=== PATIENT | female | born 1955 | race Caucasian/White ===

== ENCOUNTER → 2016-11-07 | Outpatient (CLI) | payer BC ==
[~2016-11-07] MED LIST: APIX1TAB3 PO; ASPEC81 PO; ASPI81TA28 PO; ATOR10TA88 PO; BUME1TAB PO; BUME2TAB3 PO; CALC-323 PO; CALC500C70 PO; CETI10TA84 PO; CINN500T PO; CLL250 PO; CRAN1CAP2 PO; CRAN1TAB9 PO; FELO5TAB PO; FURO80TA63 PO; GABA-112 PO; GLC/500 PO; METO50TA16 PO; MGN PO; MULT-790 PO; NXM/40 PO; OPTOPS OP; POTA99TA PO; TACR1CAP PO
[2016-11-07 18:45] LABS: BLOOD UREA NITROGEN 16 mg/dl (7-18); GLUCOSE 112 mg/dl (70-99)
[2016-11-07 18:46] LABS: BUN/CREATININE RATIO 16.3 (10-20); CALCIUM 10.8 mg/dl (8.5-10.1); CARBON DIOXIDE 28 mmol/L (21-32); CHLORIDE 102 mmol/L (98-107); MAGNESIUM 1.7 mg/dl (1.8-2.4); POTASSIUM 3.9 mmol/L (3.5-5.1); SODIUM 142 mmol/L (136-145)
== END | disposition home or self-care (01) ==
LOC: C.LAB1850 15:38
PROVIDERS: ATTEND Internal Medicine
DX: I48.91 Unspecified atrial fibrillation (principal)

== ENCOUNTER → 2017-01-24 | Outpatient (CLI) | payer BC, OTHER ==
[~2017-01-24] MED LIST changes: +ATOR10TA82 PO; -ATOR10TA88 PO
[2017-01-24 13:32] LABS: BLOOD UREA NITROGEN 11 mg/dl (7-18); BUN/CREATININE RATIO 11.9 (10-20); CALCIUM 9.5 mg/dl (8.5-10.1); CARBON DIOXIDE 28 mmol/L (21-32); CHLORIDE 104 mmol/L (98-107); CREATININE 0.89 mg/dl (0.60-1.20); GLUCOSE 170 mg/dl (70-99); MAGNESIUM 1.8 mg/dl (1.8-2.4); PHOSPHORUS 2.2 mg/dl (2.5-4.9); POTASSIUM 3.2 mmol/L (3.5-5.1); SODIUM 142 mmol/L (136-145)
[2017-01-24 13:33] LABS: HEMATOCRIT 38.4 % (37-47); MEAN CELL VOLUME 88.9 fL (80-100); MEAN CORPUSCULAR HEMOGLOBIN 29.4 pg (25-34); MEAN CORPUSCULAR HGB CONC 33.1 g/dl (32-36); MEAN PLATELET VOLUME 10.6 fL (7.4-10.4); PLATELET COUNT 189 K/uL (130-400); RED BLOOD COUNT 4.32 M/uL (4.2-5.4); WHITE BLOOD COUNT 4.56 K/uL (4.8-10.8)
[2017-01-28 08:34] LABS: FK506 TACROLIMUS HIGHLY SENS 4.9 MCG/L (5-20)
== END | disposition home or self-care (01) ==
LOC: C.LABMFLN 13:28
PROVIDERS: ATTEND Family Medicine
DX: M85.80 Other specified disorders of bone density and structure, unspecified site (principal)

== ENCOUNTER → 2017-03-31 | Day surgery (SDC) | payer BC ==
[~2017-03-31] VITALS: Ht 162.6 cm; Wt 105.0 kg
[2017-03-31 07:07] VITALS: BP 149/73; PULSE 91; TEMP 36.5; O2SAT 96; Ht 162.6 cm; Wt 105.0 kg
[2017-03-31 07:40] VITALS: BP 120/87; PULSE 89; O2SAT 95
--- NOTE | 2017-03-31 07:42 | History & Physical Bridge Note ---
H&P Re-Evaluation Bridge Note: I have examined the patient, reviewed the History & Physical and in the interval since the performance of the History & Physical I have noted the following changes of clinical significance: No changes noted
[2017-03-31 07:43] VITALS: BP 149/89; PULSE 90; O2SAT 95
[2017-03-31 07:45] VITALS: BP 145/89; PULSE 90; O2SAT 95
--- NOTE | 2017-03-31 07:49 | Cardiology Procedure Brief Nt ---
Preliminary Cardiology Note Procedure Date Mar 31, 2017. 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
[2017-03-31 07:50] VITALS: BP 128/93; PULSE 69; O2SAT 95
[2017-03-31 09:30] VITALS: BP 149/90; PULSE 72; O2SAT 97
--- NOTE | 2017-03-31 09:35 | Discharge Instructions ---
Discharge Instructions Date of Service Mar 31, 2017. Admission Reason for Admission: Atrial fibrillation Discharge Discharge Diagnosis / Problem: electrical cardioversion Discharge Goals Goal(s): Improve disease control Activity Recommendations Activity Limitations: resume your previous activity . Instructions / Follow-Up Instructions / Follow-Up ACTIVITY RECOMMENDATIONS: * May resume driving tomorrow. SPECIAL CARE: * May apply burn ointment for skin irritation. * Please contact physician for any lightheadedness, dizziness or palpitations. Current Hospital Diet Patient's current hospital diet: AHA Diet (Heart Healthy) Discharge Diet Recommended Diet: AHA Diet (Heart Healthy) Pending Studies Studies pending at discharge: no Medical Emergencies . Who to Call and When: Medical Emergencies: If at any time you feel your situation is an emergency, please call 911 immediately. . Non-Emergent Contact Non-Emergency issues call your: Primary Care Provider . . "Provider Documentation" section prepared by Levon Naidu. . VTE Core Measure Inpt VTE Proph given/why not?: Other Anticoagulation
--- NOTE | 2017-03-31 14:30 | OPERATIVE REPORT ---
DATE OF OPERATION: 03/31/2017 PROCEDURE: Electrical cardioversion. INDICATIONS FOR CARDIOVERSION: Atrial fibrillation. HISTORY: This is a 61-year-old woman who had a diagnosis of atrial fibrillation in mid October 2016. She was relatively unaware of the arrhythmia, she was anticoagulated, but did have a mild cardiomyopathy. We felt it was best to consider cardioversion, initially without medications. DESCRIPTION OF PROCEDURE: She was brought to the laboratory on the morning of 03/31/2017 being n.p.o. after midnight. She was identified in the laboratory, prepped and connected to the recording apparatus. Anteroposterior patch electrodes were placed. She was anesthetized using propofol anesthetic delivered by the anesthesia department. Once adequately anesthetized, a 200 joule biphasic synchronized shock was delivered, but this was unsuccessful in converting the arrhythmia. A second 360 joule synchronized biphasic shock was used with conversion to sinus rhythm with frequent premature atrial beats. She awoke without sequelae from the procedure, she was observed briefly and discharged. SHELLY
== END | disposition home or self-care (01) ==
LOC: C.CATH 06:37
PROVIDERS: ATTEND Internal Medicine Cardiovascular Disease
DX: I48.0 Paroxysmal atrial fibrillation (principal); I10 Essential (primary) hypertension; I42.9 Cardiomyopathy, unspecified; M19.90 Unspecified osteoarthritis, unspecified site; E11.42 Type 2 diabetes mellitus with diabetic polyneuropathy; N18.6 End stage renal disease; K21.9 Gastro-esophageal reflux disease without esophagitis; Z94.0 Kidney transplant status; E66.9 Obesity, unspecified; Z86.718 Personal history of other venous thrombosis and embolism; Z87.01 Personal history of pneumonia (recurrent); Z87.440 Personal history of urinary (tract) infections; E78.00 Pure hypercholesterolemia, unspecified; Z90.89 Acquired absence of other organs; Z90.49 Acquired absence of other specified parts of digestive tract; Z90.710 Acquired absence of both cervix and uterus; Z82.49 Family history of ischemic heart disease and other diseases of the circulatory system

== ENCOUNTER → 2017-04-02 | Outpatient (CLI) | payer BC ==
[~2017-04-02] MED LIST changes: -ASPEC81 PO; -BUME1TAB PO; -CALC-323 PO; -CETI10TA84 PO; -CRAN1TAB9 PO; -FELO5TAB PO; -FURO80TA63 PO; -NXM/40 PO
[2017-04-02 13:39] LABS: BASO % 0.6 %; BASO ABS # 0.03 K/uL (0-0.2); COMPLETE YES; EOS % 3.2 %; HEMATOCRIT 37.3 % (37-47); IG% 0.2 %; LYMPH % 29.1 %; LYMPH ABS # 1.46 K/uL (1.2-3.4); MEAN CELL VOLUME 89.7 fL (80-100); MEAN CORPUSCULAR HEMOGLOBIN 29.1 pg (25-34); MEAN CORPUSCULAR HGB CONC 32.4 g/dl (32-36); MEAN PLATELET VOLUME 10.5 fL (7.4-10.4); MONO % 9.8 %; NEUT % 57.1 %; PLATELET COUNT 175 K/uL (130-400); RED BLOOD COUNT 4.16 M/uL (4.2-5.4); WHITE BLOOD COUNT 5.02 K/uL (4.8-10.8)
[2017-04-02 14:12] LABS: ESTIMATED AVERAGE GLUCOSE 146 mg/dl; HA1C FLAG Normal (Normal)
[2017-04-02 14:30] LABS: PHOSPHORUS 3.1 mg/dl (2.5-4.9)
[2017-04-02 14:33] LABS: CALCIUM 9.6 mg/dl (8.5-10.1)
[2017-04-02 14:46] LABS: ALT/SGPT 50 U/L (12-78); AST/SGOT 27 U/L (15-37); BLOOD UREA NITROGEN 21 mg/dl (7-18); BUN/CREATININE RATIO 20.7 (10-20); CARBON DIOXIDE 29 mmol/L (21-32); CHLORIDE 103 mmol/L (98-107); CHOLESTEROL 124 mg/dl (0-200); GLUCOSE 113 mg/dl (70-99); POTASSIUM 3.8 mmol/L (3.5-5.1); SODIUM 142 mmol/L (136-145); TRIGLYCERIDES 123 mg/dl (0-150); VERY LOW DENSITY LIPOPROT CALC 25 mg/dl
[2017-04-02 14:50] LABS: CHOLESTEROL/HDL RATIO 2.6; HDL CHOLESTEROL 47 mg/dl; LDL CHOLESTEROL CALCULATED 52 mg/dl
[2017-04-05 03:43] LABS: FK506 TACROLIMUS HIGHLY SENS 5.9 MCG/L (5-20)
== END | disposition home or self-care (01) ==
LOC: C.LABMFLN 11:44
PROVIDERS: ATTEND Internal Medicine
DX: B02.29 Other postherpetic nervous system involvement (principal); Z94.0 Kidney transplant status

== ENCOUNTER → 2017-04-03 | Outpatient (CLI) | payer BC ==
[2017-04-03 12:32] LABS: MANUAL MICROSCOPIC REQUIRED? YES; URINE APPEARANCE SL CLOUDY (CLEAR); URINE BILIRUBIN NEG (NEG); URINE COLOR YELLOW; URINE NITRITE NEG (NEG); URINE PH 5.5 (4.5-7.5); UROBILINOGEN NEG (NEG)
[2017-04-03 12:35] LABS: REVIEW REQ? NO
[2017-04-03 12:39] LABS: URINE RBC 0-4 /hpf (0-4)
[2017-04-03 12:40] LABS: URINE BACTERIA 1+ (NEG)
[2017-04-03 14:34] LABS: RATIO 48.1 mcg/mg (0-30.0)
== END | disposition home or self-care (01) ==
LOC: C.LAB1850 11:30
PROVIDERS: ATTEND Internal Medicine
DX: B02.29 Other postherpetic nervous system involvement (principal); Z94.0 Kidney transplant status

== ENCOUNTER → 2017-07-18 | Outpatient (CLI) | payer BC ==
[~2017-07-18] MED LIST changes: -ATOR10TA82 PO; +ATOR10TA88 PO
[2017-07-18 13:14] LABS: BASO % 0.8 %; BASO ABS # 0.06 K/uL (0-0.2); COMPLETE YES; EOS % 3.2 %; HEMATOCRIT 40.7 % (37-47); IG% 0.4 %; LYMPH % 29.8 %; LYMPH ABS # 2.17 K/uL (1.2-3.4); MEAN CELL VOLUME 87.7 fL (80-100); MEAN CORPUSCULAR HEMOGLOBIN 28.7 pg (25-34); MEAN CORPUSCULAR HGB CONC 32.7 g/dl (32-36); MEAN PLATELET VOLUME 10.1 fL (7.4-10.4); MONO % 8.8 %; PLATELET COUNT 261 K/uL (130-400); RED BLOOD COUNT 4.64 M/uL (4.2-5.4); WHITE BLOOD COUNT 7.27 K/uL (4.8-10.8)
[2017-07-18 13:19] LABS: ESTIMATED AVERAGE GLUCOSE 137 mg/dl; HA1C FLAG Normal (Normal)
[2017-07-18 13:23] LABS: BLOOD UREA NITROGEN 14 mg/dl (7-18); BUN/CREATININE RATIO 14.5 (10-20); CARBON DIOXIDE 28 mmol/L (21-32); CHLORIDE 100 mmol/L (98-107); CREATININE 0.98 mg/dl (0.60-1.20); GLUCOSE 114 mg/dl (70-99); POTASSIUM 4.1 mmol/L (3.5-5.1); SODIUM 138 mmol/L (136-145)
[2017-07-21 16:51] LABS: FK506 TACROLIMUS HIGHLY SENS 6.8 MCG/L (5-20)
== END | disposition home or self-care (01) ==
LOC: C.LABMFLN 08:21
PROVIDERS: ATTEND Internal Medicine
DX: E11.9 Type 2 diabetes mellitus without complications (principal)

== ENCOUNTER → 2018-01-21 | Outpatient (CLI) | payer BC ==
[~2018-01-21] MED LIST changes: +ATOR10TA82 PO; -ATOR10TA88 PO
[2018-01-21 12:36] LABS: HEMATOCRIT 37.8 % (37-47); HEMOGLOBIN 12.6 g/dL (12.0-16.0); MEAN CELL VOLUME 88.3 fL (80-100); MEAN CORPUSCULAR HEMOGLOBIN 29.4 pg (25-34); MEAN CORPUSCULAR HGB CONC 33.3 g/dl (32-36); MEAN PLATELET VOLUME 10.7 fL (7.4-10.4); PLATELET COUNT 188 K/uL (130-400); RED CELL DISTRIBUTION WIDTH CV 13.3 % (11.5-14.5); RED CELL DISTRIBUTION WIDTH SD 42.4 fL (36.4-46.3); WHITE BLOOD COUNT 4.65 K/uL (4.8-10.8)
[2018-01-21 13:17] LABS: BLOOD UREA NITROGEN 12 mg/dl (7-18); CALCIUM 9.6 mg/dl (8.5-10.1); CARBON DIOXIDE 28 mmol/L (21-32); CREATININE 0.84 mg/dl (0.60-1.20); GLUCOSE 96 mg/dl (70-99); POTASSIUM 3.3 mmol/L (3.5-5.1); SODIUM 137 mmol/L (136-145)
[2018-01-21 13:18] LABS: PHOSPHORUS 3.2 mg/dl (2.5-4.9)
[2018-01-23 02:26] LABS: FK506 TACROLIMUS HIGHLY SENS 5.1 MCG/L (5-20)
== END | disposition home or self-care (01) ==
LOC: C.LABMFLN 07:36
PROVIDERS: ATTEND Surgery
DX: Z09 Encounter for follow-up examination after completed treatment for conditions other than malignant neoplasm (principal); Z48.298 Encounter for aftercare following other organ transplant; Z94.0 Kidney transplant status; Z79.899 Other long term (current) drug therapy

== ENCOUNTER 2020-12-20 22:41 | Observation (INO) ==
[2020-12-20] MEDS ORDERED: SODIUM CHLORIDE 0.9% 1000ML 1,000 ML IV STA (23:31)
[2020-12-20] MEDS ORDERED: SODIUM CHLORIDE 0.9% 500 ML IV SCH (23:45)
[2020-12-20 23:47] LABS: Basophils # (auto) 0.02 K/uL (0-0.2); Basophils % (auto) 0.2 %; Eosinophils # (auto) 0.09 K/uL (0-0.5); Eosinophils % (auto) 1.1 %; Hematocrit (blood only) 36.3 % (37-47); Hemoglobin 11.5 g/dL (12.0-16.0); Immature Granulocytes # (auto) 0.02 K/uL (0.00-0.02); Immature Granulocytes % (auto) 0.2 %; Lymphocytes # (auto) 1.63 K/uL (1.2-3.4); Lymphocytes % (auto) 19.7 %; Mean Corpuscular Hgb Conc 31.7 g/dL (32-36); Mean Corpuscular Volume 88.5 fL (80-100); Mean Platelet Volume 10.2 fL (7.4-10.4); Monocytes # (auto) 0.79 K/uL (0.11-0.59); Monocytes % (auto) 9.5 %; Neutrophils # (auto) 5.73 K/uL (1.4-6.5); Neutrophils % (auto) 69.3 %; Platelet Count 260 K/uL (130-400); RDW Coefficient of Variation 14.4 % (11.5-14.5); RDW Standard Deviation 46.9 fL (36.4-46.3); White Blood Count 8.28 K/uL (4.8-10.8)
[2020-12-20 23:49] LABS: Albumin Level 3.8 gm/dl (3.4-5.0); Calcium 9.5 mg/dl (8.5-10.1); Creatinine Clr Calc Pharmacy 54.9 ml/min; Est GFR (African American) 53.8; Est GFR (Non-African American) 46.5; Potassium 3.5 mmol/L (3.5-5.1)
[2020-12-20 23:52] LABS: Albumin Globulin Ratio 1.3 (0.9-2); Bilirubin,Total 0.6 mg/dl (0.2-1); Globulin 2.8 gm/dl (2.5-4.0); Total Protein 6.6 gm/dl (6.4-8.2)
[2020-12-20 23:55] LABS: Partial Thromboplastin Ratio 0.9; Partial Thromboplastin Time 22.8 Seconds (21.0-31.0); Prothrombin Time 10.4 Seconds (9.0-12.0)
--- NOTE | 2020-12-21 01:15 | Emergency Department Note ---
Impression & Plan Acute lower GI bleeding, Anticoagulated ED Provider Note INFORMANT: Patient ED PROVIDER(S): Tong Dolan MD CHIEF COMPLAINT: Rectal bleeding PLAN: Disposition: Admitted Condition: Good Outpatient prescription management: none Referral: None MEDICAL DECISION MAKING: Patient presented emergency department because of rectal bleeding. Vital signs are stable. She had a bloody bowel movement here in the ER. The patient does have a mild anemia. Blood work was otherwise unremarkable. She is anticoagulated. The patient will need to be admitted for further management. I did discuss the case with Dr. Springer.he recommended one half prep and admission. Colonoscopy in morning. I discussed the case with Dr. Braga of internal medicine. Patient was admitted. Triage Nursing notes reviewed and agree them. Vital Signs: reviewed and remarkable for no significant abnormalities Differential diagnosis: Post polypectomy bleed, diverticulosis, AVM, coagulopathy, colitis, inflammatory bowel disease, malignancy, Bety-He tear, esophagitis, peptic ulcer disease, variceal bleed, gastritis, epistaxis, fissure, hemorrhoids, as well as other pathologies. Diagnostics interpreted by me: Cardiac Monitoring: Cardiac monitoring ordered by me: The patient was placed on continuous cardiac monitoring and observed. It revealed a normal sinus rhythm at 98 beats per minute without ectopy or evidence of dysrhythmia. Consultation(s): Gastroenterology Internal medicine HPI: The patient is a 65 year old female who presents to the Emergency Room with complaints of rectal bleeding. This started at 5 PM and is persisting. The patient also notes the following associated symptoms, none. The patient is a nticoagulated on Eliquis. She had a colonoscopy done today by Dr. Campos. At 5 PM she began bleeding. She contacted on-call GI and was directed to the ER. She was recommended for admission and likely colonoscopy in the morning. The patient has has taken no new medication for relieving factors. She did take her Eliquis this evening just prior to the onset of bleeding. Current pain is rated as 0/10. Pt denies LOC, headache, fevers, chills, diaphoresis, visual changes, neck pain, chest pain, breathing difficulties, nausea, vomiting, abdominal pain, back pain, melena, urinary symptoms, numbness, weakness, lymphadenopathy, rash, or other complaints. ROS: See above HPI for pertinent positives & negatives. A total of 10 systems reviewed and were otherwise negative. PAST MEDICAL HISTORY:See Below , end-stage renal disease PAST SURGICAL HISTORY:See Below, renal transplant FAMILY HISTORY:See Below SOCIAL HISTORY:See Below, HOME MEDICATIONS:See Below ALLERGIES:See Below VITALS:See Below PHYSICAL EXAMINATION: GENERAL: Awake, alert, well-appearing, in no distress HENT: Normocephalic, atraumatic. Oropharynx unremarkable. EYES: Normal conjunctiva. Sclera non-icteric. NECK: Inspection normal. Non-tender. Supple. No nuchal rigidity. FROM. No masses. RESPIRATORY: Clear to auscultation. No wheezes. No rales. Normal respiratory effort. CARDIAC: Normal rate. Normal rhythm. No murmurs. No rubs. Extremities warm and well perfused. Pulses equal. No JVD. GI: Soft, non-distended. No tenderness to palpation. No rebound or guarding. No masses. RECTAL: Deferred. Stool sample obtained and was grossly bloody. MUSCULOSKELETAL: Atraumatic. Chest examination reveals no tenderness. The back is symmetrical on inspection without obvious abnormality. There is no CVA tenderness to palpation. No joint edema. LOWER EXTREMITIES: Calves are equal size bilaterally and non-tender. No edema. No discoloration. NEURO: Normal sensorium. No sensory or motor deficits noted. SKIN: No rash or jaundice noted. Tong Dolan MD Past Med/Surg History Medical History Anemia Arthritis Cardiomyopathy Diabetes mellitus type 2, uncontrolled Diabetic peripheral neuropathy End stage renal disease had transplant currently doing well Gastroesophageal reflux disease History of blood clots Hypercholesterolemia Hypertension 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 Naidu--on eliquis and metoprolol Post herpetic neuralgia Thrombophlebitis of deep vein of lower leg Tubular adenoma of colon UTI (urinary tract infection) Venous insufficiency Surgical History History of cardiac radiofrequency ablation (RFA) History of colonoscopy with polypectomy History of colostomy (~07/1999) 6 inches removed d/t diverticulitis @ [facility] History of colostomy reversal (~04/2000) @ [place] History of esophagogastroduodenoscopy (EGD) History of left cataract extraction History of sinus surgery History of wisdom tooth extraction Kidney replaced by transplant x2--1987 @ [facility] [place]/2000 @ [facility] [place] S/P appendectomy S/P arteriovenous (AV) fistula creation x2 S/P cholecystectomy (~2006) S/P dilatation and curettage S/P hysterectomy S/P tooth extraction Family History Mother Diverticula of colon Father Myocardial infarction Thrombophlebitis Grandfather (Maternal) Myocardial infarction Brother Family hx colonic polyps Other No family history of adverse response to anesthesia Social History Smoking Status: Former smoker Tobacco Type: Cigarettes Second Hand Exposure: No; Hx Alcohol Use: Yes Alcohol type: wine Hx Substance Use: No Preferred Language: Tajik Communication Ability: Effective Otorhinolaryngologist Required: No Beliefs That Will Affect Care: None marital status: Single Current Living Situation: Alone Feels Safe at Home: Yes Assistive Devices: Glasses Allergies Allergies Allergy/AdvReac Type Severity Reaction Status Date / Time erythromycin base AdvReac Severe "would Verified 12/21/20 00:51 interact overtime with my transplant meds" Home Meds Home Medications Medication Instructions Recorded Confirmed aspirin 81 mg tablet,delayed 81 mg PO QPM tab 06/09/19 12/21/20 release calcium carbonate 200 mg calcium 400 mg PO BID tab 06/09/19 12/21/20 (500 mg) chewable tablet cinnamon bark 500 mg capsule 500 mg PO BID cap 06/09/19 12/21/20 cranberry 400 mg capsule 400 mg PO BID cap 06/09/19 12/21/20 magnesium oxide 400 mg (241.3 mg 400 mg PO BID #120 tab 06/09/19 12/21/20 magnesium) tablet multivitamin 1 tab PO QAM 06/09/19 12/21/20 mycophenolate mofetil 500 mg tablet 1,000 mg PO BID #120 tab 06/09/19 12/21/20 potassium chloride 10 mEq 20 meq PO BID tab 06/09/19 12/21/20 tablet,extended release tacrolimus 1 mg capsule,extended 2 mg PO QAM cap 06/24/19 12/21/20 release 24 hr lancets 26 gauge #100 ea 07/12/19 12/13/20 biotin 1,000 mcg chewable tablet 1,000 mcg PO QPM tab 09/12/20 12/21/20 atorvastatin 20 mg PO QPM 11/30/20 12/21/20 bumetanide 2 mg PO QAM 11/30/20 12/21/20 gabapentin 400 mg PO QPM 11/30/20 12/21/20 insulin glargine 100 unit/mL (3 22 unit SQ QPM ml 12/12/20 12/21/20 mL) subcutaneous pen Previous Rx's Medication Instructions Recorded Bus[employer].comTouch Ultra Blue Test Strip #100 ea NS 12/21/19 BD Ultra-Fine [place] Pen Needle 32 #100 ea NS 02/29/20 gauge x 5/32" metformin 500 mg tablet 1,000 mg PO BID #360 tab 10/02/20 apixaban 5 mg tablet 5 mg PO BID #180 tab 12/14/20 metoprolol tartrate 25 mg tablet 25 mg PO BID #180 tab 12/14/20 metoprolol tartrate 50 mg tablet 50 mg PO BID #180 tab 12/14/20 Results & Data (ED) Vital Signs Vital Signs - 24 hr 12/20/20 22:44 12/20/20 23:26 12/21/20 00:00 Temperature 36.8 C Temperature Source Temporal Artery Scan Pulse Rate 89 99 H 98 H Respiratory Rate 18 16 20 Respiratory Effort / Characteristics Non-Labored Spontaneous Respiratory Depth Normal Respiratory Pattern Regular Blood Pressure 138/74 151/84 H 149/73 H Blood Pressure Mean 95 106 98 Pulse Oximetry 99 99 98 Oxygen Delivery Method Room Air Sepsis Recent Fever Within 48 Hours No Sepsis New/Unexplained Change in Mental Status No Sepsis Action Taken by Nursing No Action Required 12/21/20 01:00 Temperature Temperature Source Pulse Rate 98 H Respiratory Rate 20 Respiratory Effort / Characteristics Respiratory Depth Respiratory Pattern Blood Pressure 154/78 H Blood Pressure Mean 103 Pulse Oximetry 98 Oxygen Delivery Method Sepsis Recent Fever Within 48 Hours Sepsis New/Unexplained Change in Mental Status Sepsis Action Taken by Nursing Laboratory Data Result diagrams: 12/20/20 23:10 12/20/20 23:10 Lab Results 12/20/20 12/20/20 12/20/20 Range/Units 23:10 23:10 23:10 WBC 8.28 (4.8-10.8) K/uL RBC 4.10 L (4.2-5.4) M/uL Hgb 11.5 L (12.0-16.0) g/dL Hct 36.3 L (37-47) % MCV 88.5 (80-100) fL MCH 28.0 (25-34) pg MCHC 31.7 L (32-36) g/dL RDW Std Deviation 46.9 H (36.4-46.3) fL RDW Coeff of Tommy 14.4 (11.5-14.5) % Plt Count 260 (130-400) K/uL MPV 10.2 (7.4-10.4) fL Immature Gran % (Auto) 0.2 % Neut % (Auto) 69.3 % Lymph % (Auto) 19.7 % [place] % (Auto) 9.5 % Eos % (Auto) 1.1 % Baso % (Auto) 0.2 % Neut # (Auto) 5.73 (1.4-6.5) K/uL Lymph # (Auto) 1.63 (1.2-3.4) K/uL [place] # (Auto) 0.79 H (0.11-0.59) K/uL Eos # (Auto) 0.09 (0-0.5) K/uL Baso # (Auto) 0.02 (0-0.2) K/uL Immature Gran # (Auto) 0.02 (0.00-0.02) K/uL PT 10.4 (9.0-12.0) Seconds INR 1.0 (0.9-1.1) APTT 22.8 (21.0-31.0) Seconds PTT Ratio 0.9 Sodium 142 (136-145) mmol/L Potassium 3.5 (3.5-5.1) mmol/L Chloride 106 (98-107) mmol/L Carbon Dioxide 28 (21-32) mmol/L Anion Gap 7.0 (3-11) BUN 18 (7-18) mg/dl Creatinine 1.22 H (0.6-1.2) mg/dl Est Cr Clr Drug Dosing 54.9 ml/min Est GFR ( Amer) 53.8 Est GFR (Non-Af Amer) 46.5 BUN/Creatinine Ratio 15.0 (10-20) Glucose 143 H (70-99) mg/dl Calcium 9.5 (8.5-10.1) mg/dl Total Bilirubin 0.6 (0.2-1) mg/dl AST 24 (15-37) U/L ALT 49 (12-78) U/L Alkaline Phosphatase 60 (45-117) U/L Total Protein 6.6 (6.4-8.2) gm/dl Albumin 3.8 (3.4-5.0) gm/dl Globulin 2.8 (2.5-4.0) gm/dl Albumin/Globulin Ratio 1.3 (0.9-2) POC Stool Occult Blood (Negative) Blood Type Antibody Screen 12/20/20 12/21/20 Range/Units 23:43 00:23 WBC (4.8-10.8) K/uL RBC (4.2-5.4) M/uL Hgb (12.0-16.0) g/dL Hct (37-47) % MCV (80-100) fL MCH (25-34) pg MCHC (32-36) g/dL RDW Std Deviation (36.4-46.3) fL RDW Coeff of Tommy (11.5-14.5) % Plt Count (130-400) K/uL MPV (7.4-10.4) fL Immature Gran % (Auto) % Neut % (Auto) % Lymph % (Auto) % [place] % (Auto) % Eos % (Auto) % Baso % (Auto) % Neut # (Auto) (1.4-6.5) K/uL Lymph # (Auto) (1.2-3.4) K/uL [place] # (Auto) (0.11-0.59) K/uL Eos # (Auto) (0-0.5) K/uL Baso # (Auto) (0-0.2) K/uL Immature Gran # (Auto) (0.00-0.02) K/uL PT (9.0-12.0) Seconds INR (0.9-1.1) APTT (21.0-31.0) Seconds PTT Ratio Sodium (136-145) mmol/L Potassium (3.5-5.1) mmol/L Chloride (98-107) mmol/L Carbon Dioxide (21-32) mmol/L Anion Gap (3-11) BUN (7-18) mg/dl Creatinine (0.6-1.2) mg/dl Est Cr Clr Drug Dosing ml/min Est GFR ( Amer) Est GFR (Non-Af Amer) BUN/Creatinine Ratio (10-20) Glucose (70-99) mg/dl Calcium (8.5-10.1) mg/dl Total Bilirubin (0.2-1) mg/dl AST (15-37) U/L ALT (12-78) U/L Alkaline Phosphatase (45-117) U/L Total Protein (6.4-8.2) gm/dl Albumin (3.4-5.0) gm/dl Globulin (2.5-4.0) gm/dl Albumin/Globulin Ratio (0.9-2) POC Stool Occult Blood Negative (Negative) Blood Type A Positive Antibody Screen NEGATIVE Administered Medications Sodium Chloride (Nss 1000ml) 1,000 mls @ 125 mls/hr IV .Q8H STA Stop: 12/21/20 07:30 Last Admin: 12/21/20 01:00 Dose: 125 mls/hr Documented by: [id number] Discontinued Medications Sodium Chloride (Nss) 500 mls @ 999 mls/hr IV .Q31M SANGEETA Stop: 12/21/20 00:15 Last Infusion: 12/21/20 01:00 Dose: 0 mls/hr Documented by: [id number] Admin: 12/21/20 00:00 Dose: 999 mls/hr Documented by: [id number] Discharge Plan Visit Data Chief Complaint: Rectal Bleed Stated Complaint: RECTAL BLEEDING, POST COLONOSCOPY ED Provider: Tong Dolan Discharge Problem: Acute lower GI bleeding, Anticoagulated Forms Stand Alone Forms: My [facility] Prescriptions Prescriptions: No Action (DME) pen needle, diabetic [BD Ultra-Fine [place] Pen Needle] 32 gauge x 5/32" needle See Rx Instructions .ROUTE .MEDSUPPLY Qty: 100 RF: 3 metformin 500 mg tablet 1,000 mg PO BID Qty: 360 RF: 3 aspirin 81 mg tablet,delayed release (DR/EC) 81 mg PO QPM RF: 0 calcium carbonate 200 mg calcium (500 mg) tablet,chewable 400 mg PO BID RF: 0 cinnamon bark 500 mg capsule 500 mg PO BID RF: 0 cranberry 400 mg capsule 400 mg PO BID RF: 0 magnesium oxide 400 mg (241.3 mg magnesium) tablet 400 mg PO BID Qty: 120 RF: 0 multivitamin [Daily Multi-Vitamin] tablet 1 tab PO QAM RF: 0 mycophenolate mofetil 500 mg tablet 1,000 mg PO BID Qty: 120 RF: 0 potassium chloride 10 mEq tablet extended release 20 meq PO BID RF: 0 tacrolimus 1 mg capsule,extended release 24hr 2 mg PO QAM RF: 0 (DME) OneTouch Ultra Blue Test Strip Strip See Dose Instructions .ROUTE .MEDSUPPLY Qty: 100 RF: 3 (DME) lancets [ReliOn Thin Lancets] 26 gauge misc See Dose Instructions .ROUTE .MEDSUPPLY Qty: 100 RF: 0 biotin 1,000 mcg tablet,chewable 1,000 mcg PO QPM RF: 0 Eliquis 5 mg tablet 5 mg PO BID Qty: 180 RF: 3 metoprolol tartrate 50 mg tablet 50 mg PO BID Qty: 180 RF: 3 metoprolol tartrate 25 mg tablet 25 mg PO BID Qty: 180 RF: 3 atorvastatin 20 mg tablet 20 mg PO QPM RF: 0 bumetanide 2 mg tablet 2 mg PO QAM RF: 0 gabapentin 400 mg capsule 400 mg PO QPM RF: 0 [place] Solostar U-100 Insulin 100 unit/mL (3 mL) insulin pen 22 unit SQ QPM RF: 0
[2020-12-21] MEDS ORDERED: ACETAMINOPHEN 325 MG TAB PO STA (01:45)
--- NOTE | 2020-12-21 02:16 | History & Physical Report ---
Date of Service December 21, 2020 Assessment & Plan (1) Acute lower GI bleeding: s/p polypectomy of large cecal polyp performed yesterday. Patient with ongoing rectal bleeding with clot. HD stable. Hgb=11.5. Ddx most likely bleeding from polypectomy site, however, patient also with diverticuli and hemorrhoids -Admit to medical with telemetry -Maintain 2 PIVs -Montior CBC - transfuse for Hgb <7, ongoing bleed -Hold anticoagulation -Administer 1/2 bowel prep per recommendation from GI - GoLytely x 8 doses -Keep NPO -Plan for colonoscopy tomorrow. Appreciate GI assistance Present on Admission?: Yes (2) Kidney transplanted: Slightly increased Cr from baseline. -Avoid nephrotoxic agents -Renal dosing where needed -Monitor BUN, Cr, electrolytes, UOP -Continue home medications - CellCept and Prograf Present on Admission?: Yes (3) Dyslipidemia: Chronic -Continue Atorvastatin Present on Admission?: Yes (4) Diabetes mellitus: Chronic. Gno=167 today -Continue Lantus - 20 units qHS -ISS -Hold Metformin -Continue Gabapentin for peripheral neuropathy Present on Admission?: Yes (5) Permanent atrial fibrillation: Rate controlled -Hold Apixaban in setting of acute bleed -Continue Metoprolol -Continue to monitor Present on Admission?: Yes (6) Hypertension: Blood pressure stable -Continue Metoprolol -Continue to monitor Present on Admission?: Yes (7) Anemia: Chronic. Near baseline. -Continue to monitor -Transfusion as needed F/E/N - Heplock. Conitnue PO KCl and Magnesium, NPO for now. Hold supplements - Cinnamon, cranberry, biotin Present on Admission?: Yes History of Present Illness Chief Complaint: rectal bleed Primary Care Provider: Marcus Jaramillo MD Erin Sanchez is a 65yo C female with complex medical history to include AF on Eliquis, s/p renal transplant on CellCept and Tacrolimus as well as DM, HTN. Patient had a colonoscopy performed yesterday with removal of a 12mm sessile polyp from the cecum with a hot snare. She had multiple small-mouthed diverticula as well as non-bleeding internal hemorrhoids. Procedure was well tolerated and patient returned to her hotel later in the day. She had dinner last evening and later began to pass large amounts of bright red blood per rectum with clots. She denies pain. Denies CP/SOB/palpitations/dizziness. Bloody BMs continued in the ER but have improved over the last hour. She held her Apixaban as instructed for the procedure since 12/18/20. Took her evening dose yesterday. Er Course: Tylenol. NSS. Gabapentin 400mg Allergies Allergy/AdvReac Type Severity Reaction Status Date / Time erythromycin base AdvReac Severe "would Verified 12/21/20 00:51 interact overtime with my transplant meds" Home Medications Medication Instructions Recorded Confirmed Type aspirin 81 mg tablet,delayed 81 mg PO QPM tab 06/09/19 12/21/20 History release calcium carbonate 200 mg calcium 400 mg PO BID tab 06/09/19 12/21/20 History (500 mg) chewable tablet cinnamon bark 500 mg capsule 500 mg PO BID cap 06/09/19 12/21/20 History cranberry 400 mg capsule 400 mg PO BID cap 06/09/19 12/21/20 History magnesium oxide 400 mg (241.3 mg 400 mg PO BID #120 tab 06/09/19 12/21/20 History magnesium) tablet multivitamin 1 tab PO QAM 06/09/19 12/21/20 History mycophenolate mofetil 500 mg tablet 1,000 mg PO BID #120 tab 06/09/19 12/21/20 History potassium chloride 10 mEq 20 meq PO BID tab 06/09/19 12/21/20 History tablet,extended release tacrolimus 1 mg capsule,extended 2 mg PO QAM cap 06/24/19 12/21/20 History release 24 hr lancets 26 gauge #100 ea 07/12/19 12/13/20 History OneTouch Ultra Blue Test Strip #100 ea NS 12/21/19 12/13/20 Rx BD Ultra-Fine [place] Pen Needle 32 #100 ea NS 02/29/20 12/13/20 Rx gauge x 5/32" biotin 1,000 mcg chewable tablet 1,000 mcg PO QPM tab 09/12/20 12/21/20 History metformin 500 mg tablet 1,000 mg PO BID #360 tab 10/02/20 12/21/20 Rx atorvastatin 20 mg PO QPM 11/30/20 12/21/20 History bumetanide 2 mg PO QAM 11/30/20 12/21/20 History gabapentin 400 mg PO QPM 11/30/20 12/21/20 History insulin glargine 100 unit/mL (3 22 unit SQ QPM ml 12/12/20 12/21/20 History mL) subcutaneous pen apixaban 5 mg tablet 5 mg PO BID #180 tab 12/14/20 12/21/20 Rx metoprolol tartrate 25 mg tablet 25 mg PO BID #180 tab 12/14/20 12/21/20 Rx metoprolol tartrate 50 mg tablet 50 mg PO BID #180 tab 12/14/20 12/21/20 Rx Past Med/Surg History Medical History Anemia Arthritis Cardiomyopathy Diabetes mellitus type 2, uncontrolled Diabetic peripheral neuropathy End stage renal disease had transplant currently doing well Gastroesophageal reflux disease History of blood clots Hypercholesterolemia Hypertension 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 Naidu--on eliquis and metoprolol Post herpetic neuralgia Thrombophlebitis of deep vein of lower leg Tubular adenoma of colon UTI (urinary tract infection) Venous insufficiency Surgical History History of cardiac radiofrequency ablation (RFA) History of colonoscopy with polypectomy History of colostomy (~07/1999) 6 inches removed d/t diverticulitis @ [facility] History of colostomy reversal (~04/2000) @ [place] History of esophagogastroduodenoscopy (EGD) History of left cataract extraction History of sinus surgery History of wisdom tooth extraction Kidney [place] [facility] [place] [facility] [place] S/P appendectomy S/P arteriovenous (AV) fistula creation x2 S/P cholecystectomy (~2006) S/P dilatation and curettage S/P hysterectomy S/P tooth extraction Family History Mother Diverticula of colon Father Myocardial infarction Thrombophlebitis Grandfather (Maternal) Myocardial infarction Brother Family hx colonic polyps Other No family history of adverse response to anesthesia Social History Smoking Status: Former smoker Tobacco Type: Cigarettes Second Hand Exposure: No; Hx Alcohol Use: Yes Alcohol type: wine Hx Substance Use: No Preferred Language: Serbian Communication Ability: Effective Stablehand Required: No Beliefs That Will Affect Care: None marital status: Single Current Living Situation: Alone Feels Safe at Home: Yes Assistive Devices: Glasses Review of Systems Review of Systems: All systems reviewed & are unremarkable except as noted in HPI & below +PARKER chronic No additional complaints Physical Exam Physical Exam: General: patient resting comfortably, NAD, non-toxic in appearance, AA&O x 4 Skin: warm, dry, intact, no rashes or lesions HEENT: NC/AT, PERRL, EOMI, anicteric sclera, conjunctiva without injection, external ear normal to inspection and nontender, nares patent, dry mucus membranes, dentition intact, no oropharyngeal lesions, neck supple, trachea midline, no LAD, no thyromegaly, no JVD Heart: +S1/S2, regular, no m/r/g Lungs: equal air entry bilaterally, no rales/rhonchi/wheezes Abd: +BS, soft, NT/ND, no masses/organomegaly/ascites, midline hernia reducible Ext: warm, 2+ pulses in UE/LE bilaterally, no clubbing/cyanosis or edema, LUE AV fistula x 2, no thrill Neuro: nonfocal, patient AA&O x 4, speech intact, no facial droop, moving all extremities on command with equal strength 5/5 Results & Data Results & Data ([facility]) Vital Signs (Past 12 Hours) Vital Signs Temp Pulse Resp BP Pulse Ox 12/21/20 01:00 98 H 20 154/78 H 98 12/21/20 00:00 98 H 20 149/73 H 98 12/20/20 23:26 99 H 16 151/84 H 99 12/20/20 22:44 36.8 C 89 18 138/74 99 Laboratory Results Lab Results 12/20/20 12/20/20 12/20/20 Range/Units 23:10 23:10 23:10 WBC 8.28 (4.8-10.8) K/uL RBC 4.10 L (4.2-5.4) M/uL Hgb 11.5 L (12.0-16.0) g/dL Hct 36.3 L (37-47) % MCV 88.5 (80-100) fL MCH 28.0 (25-34) pg MCHC 31.7 L (32-36) g/dL RDW Std Deviation 46.9 H (36.4-46.3) fL RDW Coeff of Tommy 14.4 (11.5-14.5) % Plt Count 260 (130-400) K/uL MPV 10.2 (7.4-10.4) fL Immature Gran % (Auto) 0.2 % Neut % (Auto) 69.3 % Lymph % (Auto) 19.7 % [place] % (Auto) 9.5 % Eos % (Auto) 1.1 % Baso % (Auto) 0.2 % Neut # (Auto) 5.73 (1.4-6.5) K/uL Lymph # (Auto) 1.63 (1.2-3.4) K/uL [place] # (Auto) 0.79 H (0.11-0.59) K/uL Eos # (Auto) 0.09 (0-0.5) K/uL Baso # (Auto) 0.02 (0-0.2) K/uL Immature Gran # (Auto) 0.02 (0.00-0.02) K/uL PT 10.4 (9.0-12.0) Seconds INR 1.0 (0.9-1.1) APTT 22.8 (21.0-31.0) Seconds PTT Ratio 0.9 Sodium 142 (136-145) mmol/L Potassium 3.5 (3.5-5.1) mmol/L Chloride 106 (98-107) mmol/L Carbon Dioxide 28 (21-32) mmol/L Anion Gap 7.0 (3-11) BUN 18 (7-18) mg/dl Creatinine 1.22 H (0.6-1.2) mg/dl Est Cr Clr Drug Dosing 54.9 ml/min Est GFR ( Amer) 53.8 Est GFR (Non-Af Amer) 46.5 BUN/Creatinine Ratio 15.0 (10-20) Glucose 143 H (70-99) mg/dl Calcium 9.5 (8.5-10.1) mg/dl Total Bilirubin 0.6 (0.2-1) mg/dl AST 24 (15-37) U/L ALT 49 (12-78) U/L Alkaline Phosphatase 60 (45-117) U/L Total Protein 6.6 (6.4-8.2) gm/dl Albumin 3.8 (3.4-5.0) gm/dl Globulin 2.8 (2.5-4.0) gm/dl Albumin/Globulin Ratio 1.3 (0.9-2) POC Stool Occult Blood (Negative) Blood Type Antibody Screen 12/20/20 12/21/20 Range/Units 23:43 00:23 WBC (4.8-10.8) K/uL RBC (4.2-5.4) M/uL Hgb (12.0-16.0) g/dL Hct (37-47) % MCV (80-100) fL MCH (25-34) pg MCHC (32-36) g/dL RDW Std Deviation (36.4-46.3) fL RDW Coeff of Tommy (11.5-14.5) % Plt Count (130-400) K/uL MPV (7.4-10.4) fL Immature Gran % (Auto) % Neut % (Auto) % Lymph % (Auto) % [place] % (Auto) % Eos % (Auto) % Baso % (Auto) % Neut # (Auto) (1.4-6.5) K/uL Lymph # (Auto) (1.2-3.4) K/uL [place] # (Auto) (0.11-0.59) K/uL Eos # (Auto) (0-0.5) K/uL Baso # (Auto) (0-0.2) K/uL Immature Gran # (Auto) (0.00-0.02) K/uL PT (9.0-12.0) Seconds INR (0.9-1.1) APTT (21.0-31.0) Seconds PTT Ratio Sodium (136-145) mmol/L Potassium (3.5-5.1) mmol/L Chloride (98-107) mmol/L Carbon Dioxide (21-32) mmol/L Anion Gap (3-11) BUN (7-18) mg/dl Creatinine (0.6-1.2) mg/dl Est Cr Clr Drug Dosing ml/min Est GFR ( Amer) Est GFR (Non-Af Amer) BUN/Creatinine Ratio (10-20) Glucose (70-99) mg/dl Calcium (8.5-10.1) mg/dl Total Bilirubin (0.2-1) mg/dl AST (15-37) U/L ALT (12-78) U/L Alkaline Phosphatase (45-117) U/L Total Protein (6.4-8.2) gm/dl Albumin (3.4-5.0) gm/dl Globulin (2.5-4.0) gm/dl Albumin/Globulin Ratio (0.9-2) POC Stool Occult Blood Negative (Negative) Blood Type A Positive Antibody Screen NEGATIVE PG Care Time/CCT Total # of Minutes Spent Total Time Spent with Patient: Total time spent is greater than 50% in coordination of care (as documented) at patient's floor/unit and/or counseling patient: Coding Level of Care Code 83451 [facility] Care - Level 3 Diagnoses Acute lower GI bleeding K92.2 Kidney transplanted Z94.0 Dyslipidemia E78.5 Diabetes mellitus E11.42; Z79.4 Diabetes mellitus type: type 2 Diabetes mellitus public address technician insulin use: with intermediate use Diabetes mellitus complication status: with neurologic complications Diabetes mellitus complication detail: with polyneuropathy Permanent atrial fibrillation I48.2 Hypertension I10 Hypertension type: essential hypertension Anemia D64.9 Anemia type: unspecified type (1) Diabetes mellitus Diabetes mellitus type: type 2 Diabetes mellitus public address technician insulin use: with public address technician use Diabetes mellitus complication status: with neurologic complications Diabetes mellitus complication detail: with polyneuropathy Qualified Code(s): E11.42 - Type 2 diabetes mellitus with diabetic polyneuropathy; Z79.4 - [facility] (current) use of insulin (2) Hypertension Hypertension type: essential hypertension Qualified Code(s): I10 - Essential (primary) hypertension (3) Anemia Anemia type: unspecified type Qualified Code(s): D64.9 - Anemia, unspecified
[2020-12-21] MEDS ORDERED: DEXTROSE 50% 50 ML SYRINGE IV PRN (02:31)
[2020-12-21] MEDS ORDERED: CARBOHYDRATES FOR HYPOGLYCEMIA PO PRN (02:31)
[2020-12-21] MEDS ORDERED: GLUCOSE 10 TABS/TUBE PO PRN (02:31)
[2020-12-21] MEDS ORDERED: GLUCAGON FOR INJ 1 MG VIAL SQ PRN (02:31)
[2020-12-21] MEDS ORDERED: GLUCOSE 40% GEL 15 GM TUBE PO PRN (02:31)
[2020-12-21] MEDS ORDERED: LAVAGE SOLUTION 4000ML PO SCH (06:00)
[2020-12-21] MEDS: INSULIN ASPART 100 UNITS/ML 3 ML PEN SC SCH ×3 (06:13→17:30)
--- NOTE | 2020-12-21 08:12 | Anesthesiology Consultation ---
Date of Service December 21, 2020 Assessment & Plan (1) Encounter for pre-operative examination: Chart Review Chart Review: Acceptable Risk for Surgery and Patient NOT seen in Pre Admission Testing Consults Requested none History Surgery Operation Date: 12/21/20 17:00 Proposed Procedures p Colonoscopy Dr. Andres Betancur Case, DO Height/Weight Height: 5 ft 4 in Weight: 106.5 kg Allergies Allergy/AdvReac Type Severity Reaction Status Date / Time erythromycin base AdvReac Severe "would Verified 12/21/20 00:51 interact overtime with my transplant meds" Medications Home Medications Medication Instructions Recorded Confirmed Last Taken aspirin 81 mg tablet,delayed 81 mg PO QPM tab 06/09/19 12/21/20 12/19/20 release calcium carbonate 200 mg calcium 400 mg PO BID tab 06/09/19 12/21/20 12/20/20 15:00 (500 mg) chewable tablet AM DOSE cinnamon bark 500 mg capsule 500 mg PO BID cap 06/09/19 12/21/20 12/20/20 15:00 AM DOSE cranberry 400 mg capsule 400 mg PO BID cap 06/09/19 12/21/20 12/20/20 15:00 AM DOSE magnesium oxide 400 mg (241.3 mg 400 mg PO BID #120 tab 06/09/19 12/21/20 12/20/20 15:00 magnesium) tablet AM DOSE multivitamin 1 tab PO QAM 06/09/19 12/21/20 12/20/20 mycophenolate mofetil 500 mg tablet 1,000 mg PO BID #120 tab 06/09/19 12/21/20 12/20/20 15:00 AM DOSE potassium chloride 10 mEq 20 meq PO BID tab 06/09/19 12/21/20 12/20/20 15:00 tablet,extended release AM DOSE tacrolimus 1 mg capsule,extended 2 mg PO QAM cap 06/24/19 12/21/20 12/20/20 release 24 hr lancets 26 gauge #100 ea 07/12/19 12/13/20 Unknown OneTouch Ultra Blue Test Strip #100 ea NS 12/21/19 12/13/20 Unknown BD Ultra-Fine [place] Pen Needle 32 #100 ea NS 02/29/20 12/13/20 Unknown gauge x 5/32" biotin 1,000 mcg chewable tablet 1,000 mcg PO QPM tab 09/12/20 12/21/20 12/19/20 metformin 500 mg tablet 1,000 mg PO BID #360 tab 10/02/20 12/21/20 12/20/20 15:00 AM DOSE atorvastatin 20 mg PO QPM 11/30/20 12/21/20 12/19/20 bumetanide 2 mg PO QAM 11/30/20 12/21/20 12/20/20 gabapentin 400 mg PO QPM 11/30/20 12/21/20 12/19/20 insulin glargine 100 unit/mL (3 22 unit SQ QPM ml 12/12/20 12/21/20 12/19/20 mL) subcutaneous pen apixaban 5 mg tablet 5 mg PO BID #180 tab 12/14/20 12/21/20 12/20/20 15:00 AM DOSE metoprolol tartrate 25 mg tablet 25 mg PO BID #180 tab 12/14/20 12/21/20 12/20/20 15:00 AM DOSE metoprolol tartrate 50 mg tablet 50 mg PO BID #180 tab 12/14/20 12/21/20 12/20/20 15:00 AM DOSE Active Medications Generic Name Dose Route Start Last Admin Trade Name Freq PRN Reason Stop Dose Admin Bumetanide 2 mg 12/21/20 09:00 12/21/20 09:58 Bumetanide 1 Mg Tab PO 01/20/21 08:59 Not Given QAM [facility] Calcium Carbonate 500 mg 12/21/20 09:00 12/21/20 09:59 Calcium Carbonate 500 Mg Chewable Tab PO 01/20/21 08:59 Not Given BID [facility] Insulin Aspart 0 units 12/21/20 06:00 12/21/20 06:13 Insulin Aspart 100 Units/Ml 3 Ml Pen SC 01/20/21 05:59 1 units Q6 SANGEETA Administration Magnesium Oxide 400 mg 12/21/20 09:00 12/21/20 09:59 Magnesium Oxide 400 Mg Tab PO 01/20/21 08:59 Not Given BID [facility] Metoprolol Tartrate 50 mg 12/21/20 09:00 12/21/20 09:58 Metoprolol Tartrate 50 Mg Tab PO 01/20/21 08:59 Not Given BID [facility] Mycophenolate Mofetil 1,000 mg 12/21/20 09:00 12/21/20 09:58 Mycophenolate Mofetil 250 Mg Cap PO 01/20/21 08:59 Not Given BID SANGEETA Non-Formulary Medication 2 mg 12/21/20 09:00 12/21/20 09:59 Tacrolimus PO 01/20/21 08:59 Not Given QAM SANGEETA Potassium Chloride 20 meq 12/21/20 09:00 12/21/20 09:58 Potassium Chloride Crtab 20 Meq Tabcr PO 01/20/21 08:59 Not Given BID SANGEETA Past Medical History Medical History Anemia Arthritis Cardiomyopathy Diabetes mellitus type 2, uncontrolled Diabetic peripheral neuropathy End stage renal disease had transplant currently doing well Gastroesophageal reflux disease History of blood clots Hypercholesterolemia Hypertension 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 Naidu--on eliquis and metoprolol Post herpetic neuralgia Thrombophlebitis of deep vein of lower leg Tubular adenoma of colon UTI (urinary tract infection) Venous insufficiency Past Family History Family History Mother Diverticula of colon Father Myocardial infarction Thrombophlebitis Grandfather (Maternal) Myocardial infarction Brother Family hx colonic polyps Other No family history of adverse response to anesthesia Past Surgical History Surgical History History of cardiac radiofrequency ablation (RFA) History of colonoscopy with polypectomy History of colostomy (~07/1999) 6 inches removed d/t diverticulitis @ [facility] History of colostomy reversal (~04/2000) @ [place] History of esophagogastroduodenoscopy (EGD) History of left cataract extraction History of sinus surgery History of wisdom tooth extraction Kidney replaced by transplant x2--[address] [facility] [place]/2000 @ [facility] [place] S/P appendectomy S/P arteriovenous (AV) fistula creation x2 S/P cholecystectomy (~2006) S/P dilatation and curettage S/P hysterectomy S/P tooth extraction Past Anesthesia History No Hx of Anesthesia Complications and No Family Hx of Anesthesia Complications History of PONV No Hx of PONV and No Hx of Motion Sickness Social History Smoking Status: Former smoker Do You Dip or Chew Tobacco: No Hx Alcohol Use: Yes Alcohol type: wine alcohol intake frequency: holidays/special occasions only Hx Substance Use: No substance use type: does not use Physical Exam Vital Signs Last Vital Signs Temp 36.7 C 12/21/20 11:23 Pulse 59 L 12/21/20 11:23 Resp 18 12/21/20 11:23 BP 113/75 12/21/20 11:23 Pulse Ox 95 12/21/20 11:23 Testing Laboratory Results 12/21/20 08:10 12/21/20 08:10 PT 10.4 Seconds (9.0-12.0) 12/20/20 23:10 INR 1.0 (0.9-1.1) 12/20/20 23:10 APTT 22.8 Seconds (21.0-31.0) 12/20/20 23:10 Blood Type A Positive 12/20/20 23:43 Antibody Screen NEGATIVE 12/20/20 23:43 12/21/20 12/21/20 11:36 06:11 POC Glucose 131 H 142 H Electrocardiogram Date: 12/20/20 Atrial fibrillation Right bundle branch block Left anterior fascicular block Bifascicular block Minimal voltage criteria for LVH, may be normal variant Abnormal ECG When compared with ECG of 31-MAR-2017 07:51, Atrial fibrillation has replaced Junctional rhythm T wave inversion now evident in Lateral leads Other Testing Electrocardiogram Date: 12/15/19 Findings: + AFIB @ (84) Afib with ventricular premature complexes Right BBB LAFB Abnormal ECG Echocardiogram Date: 04/04/20 EF: 60-65 Mild mitral regurgitation normal biventricular systolic function mild cLVH Mod LAD Mild TR Mildly elevated RVSP Compared to echo of 11/10/18, no significant change
[2020-12-21 08:32] LABS: Basophils # (auto) 0.02 K/uL (0-0.2); Basophils % (auto) 0.4 %; Eosinophils # (auto) 0.08 K/uL (0-0.5); Eosinophils % (auto) 1.5 %; Hematocrit (blood only) 31.1 % (37-47); Immature Granulocytes # (auto) 0.01 K/uL (0.00-0.02); Immature Granulocytes % (auto) 0.2 %; Lymphocytes # (auto) 1.45 K/uL (1.2-3.4); Lymphocytes % (auto) 27.3 %; Mean Corpuscular Hemoglobin 28.3 pg (25-34); Mean Corpuscular Hgb Conc 32.2 g/dL (32-36); Mean Corpuscular Volume 88.1 fL (80-100); Mean Platelet Volume 9.7 fL (7.4-10.4); Monocytes # (auto) 0.64 K/uL (0.11-0.59); Neutrophils # (auto) 3.12 K/uL (1.4-6.5); Neutrophils % (auto) 58.6 %; Platelet Count 184 K/uL (130-400); RDW Coefficient of Variation 14.6 % (11.5-14.5); RDW Standard Deviation 46.8 fL (36.4-46.3); Red Blood Count 3.53 M/uL (4.2-5.4); White Blood Count 5.32 K/uL (4.8-10.8)
[2020-12-21 08:56] LABS: BUN Creatinine Ratio 20.6 (10-20); Calcium 9.2 mg/dl (8.5-10.1); Creatinine Clr Calc Pharmacy 67.5 ml/min; Est GFR (African American) 69.3; Est GFR (Non-African American) 59.8; Potassium 3.4 mmol/L (3.5-5.1)
--- NOTE | 2020-12-21 09:56 | Gastrointestinal Consultation ---
Date of Consultation December 21, 2020 Assessment & Plan (1) Acute lower GI bleeding: Given size of cecal polyp resected, suspect post-polypectomy bleeding. -Remain NPO. -Proceed with colonoscopy today for further evaluation. -Continue to monitor H/H. Thank you for allowing us to participate in the care of this patient. If you should have any further questions or concerns, do not hesitate to contact us at extension [phone] or [phone]. Supervising Physician Co-Signing Physician Notes Agree with Katheryn Zaragoza, PAC Abd: Soft, NT, ND, +BS Proceed with colonoscopy now Continue supportive care History of Present Illness Reason for Consultation: Rectal bleeding, anemia Attending Physician: Francois Egan DO History of Present Illness Patient is a 65 yo female with an extensive PMH of HLD, DM2, kidney transplant x 2, diverticulitis, osteopenia, DJD, HTN, GERD, & atrial fibrillation who presented to the ED with rectal bleeding following a colonoscopy on 12/20/2020. During the colonoscopy, she was noted to have a 1.2 cm polyp in the cecum. This was removed. Also noted were diverticula & internal hemorrhoids. She notes that she felt fine after her colonoscopy, and returned to her hotel room. She then noticed some abdominal fullness/discomfort, but felt that it was likely gas from the procedure. She tried to rotate to the other side to encourage the gas to pass, however she noted that she then had to use the restroom. She noted a significant amount of bright red blood. She reports passing clots as well. She is anticoagulated on Eliquis, but held her doses as directed for her colonoscopy. Her H/H is presently 08/26.1. She reports she completely 1/2 of a Swiftoly bowel prep and was finished by 7 am. She reports the bleeding has lessened significantly. She denies abdominal pain at present. Allergies Allergy/AdvReac Type Severity Reaction Status Date / Time erythromycin base AdvReac Severe "would Verified 12/21/20 00:51 interact overtime with my transplant meds" Home Medications Medication Instructions Recorded Confirmed Type aspirin 81 mg tablet,delayed 81 mg PO QPM tab 06/09/19 12/21/20 History release calcium carbonate 200 mg calcium 400 mg PO BID tab 06/09/19 12/21/20 History (500 mg) chewable tablet cinnamon bark 500 mg capsule 500 mg PO BID cap 06/09/19 12/21/20 History cranberry 400 mg capsule 400 mg PO BID cap 06/09/19 12/21/20 History magnesium oxide 400 mg (241.3 mg 400 mg PO BID #120 tab 06/09/19 12/21/20 History magnesium) tablet multivitamin 1 tab PO QAM 06/09/19 12/21/20 History mycophenolate mofetil 500 mg tablet 1,000 mg PO BID #120 tab 06/09/19 12/21/20 History potassium chloride 10 mEq 20 meq PO BID tab 06/09/19 12/21/20 History tablet,extended release tacrolimus 1 mg capsule,extended 2 mg PO QAM cap 06/24/19 12/21/20 History release 24 hr lancets 26 gauge #100 ea 07/12/19 12/13/20 History OneTouch Ultra Blue Test Strip #100 ea NS 12/21/19 12/13/20 Rx BD Ultra-Fine [place] Pen Needle 32 #100 ea NS 02/29/20 12/13/20 Rx gauge x 5/32" biotin 1,000 mcg chewable tablet 1,000 mcg PO QPM tab 09/12/20 12/21/20 History metformin 500 mg tablet 1,000 mg PO BID #360 tab 10/02/20 12/21/20 Rx atorvastatin 20 mg PO QPM 11/30/20 12/21/20 History bumetanide 2 mg PO QAM 11/30/20 12/21/20 History gabapentin 400 mg PO QPM 11/30/20 12/21/20 History insulin glargine 100 unit/mL (3 22 unit SQ QPM ml 12/12/20 12/21/20 History mL) subcutaneous pen apixaban 5 mg tablet 5 mg PO BID #180 tab 12/14/20 12/21/20 Rx metoprolol tartrate 25 mg tablet 25 mg PO BID #180 tab 12/14/20 12/21/20 Rx metoprolol tartrate 50 mg tablet 50 mg PO BID #180 tab 12/14/20 12/21/20 Rx Patient History Medical History Anemia Arthritis Cardiomyopathy Diabetes mellitus type 2, uncontrolled Diabetic peripheral neuropathy End stage renal disease had transplant currently doing well Gastroesophageal reflux disease History of blood clots Hypercholesterolemia Hypertension 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 Naidu--on eliquis and metoprolol Post herpetic neuralgia Thrombophlebitis of deep vein of lower leg Tubular adenoma of colon UTI (urinary tract infection) Venous insufficiency Surgical History History of cardiac radiofrequency ablation (RFA) History of colonoscopy with polypectomy History of colostomy (~07/1999) 6 inches removed d/t diverticulitis @ [facility] History of colostomy reversal (~04/2000) @ [facility] History of esophagogastroduodenoscopy (EGD) History of left cataract extraction History of sinus surgery History of wisdom tooth extraction Kidney replaced by transplant x2--1987 [place] [facility] [place]2000 @ [facility] [place] S/P appendectomy S/P arteriovenous (AV) fistula creation x2 S/P cholecystectomy (~2006) S/P dilatation and curettage S/P hysterectomy S/P tooth extraction Family History Mother Diverticula of colon Father Myocardial infarction Thrombophlebitis Grandfather (Maternal) Myocardial infarction Brother Family hx colonic polyps Other No family history of adverse response to anesthesia Social History Smoking Status: Former smoker Tobacco Type: Cigarettes Second Hand Exposure: No; Hx Alcohol Use: Yes Alcohol type: wine Hx Substance Use: No Preferred Language: Latvian Communication Ability: Effective Rib Stiffener And Heel Dipper Required: No Beliefs That Will Affect Care: None marital status: Single Current Living Situation: Alone Feels Safe at Home: Yes Assistive Devices: Glasses Review of Systems Constitutional: no fever and no chills Respiratory: no cough and no dyspnea Cardiovascular: no chest pain Gastrointestinal: + blood in stools; no abdominal pain Musculoskeletal: no problem reported Integumentary: no problem reported Physical Exam Constitutional: WD/WN, vitals as above Respiratory: normal respiratory effort Cardiovascular: Extremities: no edema Gastrointestinal (Abdomen): Inspection/Auscultation: abdomen normal to inspection Percussion/Palpation: abdomen soft; abdomen nontender Musculoskeletal: Head/Neck/Chest: normocephalic Psychiatric: A+Ox3, euthymic affect Results & Data ([facility]) Vital Signs (Past 12 Hours) Vital Signs Temp Pulse Pulse Resp BP BP Pulse Ox 12/21/20 07:46 36.5 C 59 L 20 134/70 96 12/21/20 04:59 102 H 12/21/20 02:31 37.4 C 98 H 18 143/84 H 97 12/21/20 02:00 96 H 16 173/73 H 95 12/21/20 01:00 98 H 20 154/78 H 98 12/21/20 00:00 98 H 20 149/73 H 98 12/20/20 23:26 99 H 16 151/84 H 99 12/20/20 22:44 36.8 C 89 18 138/74 99 PG Care Time/CCT Total # of Minutes Spent Total Time Spent with Patient: Total time spent is greater than 50% in coordination of care (as documented) at patient's floor/unit and/or counseling patient: Coding Level of Care Code 09077 Initial Inpt Care Lvl 3 Diagnoses Acute lower GI bleeding K92.2
[2020-12-21] MEDS: METOPROLOL TARTRATE 50 MG TAB PO SCH ×2 (09:58→21:09)
[2020-12-21] MEDS: BUMETANIDE 1 MG TAB PO SCH (09:58)
[2020-12-21] MEDS: MYCOPHENOLATE MOFETIL 250 MG CAP PO SCH ×2 (09:58→21:08)
[2020-12-21] MEDS: POTASSIUM CHLORIDE CRTAB 20 MEQ TABCR PO SCH ×2 (09:58→21:08)
[2020-12-21] MEDS: MAGNESIUM OXIDE 400 MG TAB PO SCH ×2 (09:59→21:10)
[2020-12-21] MEDS: CALCIUM CARBONATE 500 MG CHEWABLE TAB PO SCH ×2 (09:59→21:07)
[2020-12-21] MEDS: TACROLIMUS 1 MG PO SCH (09:59)
[2020-12-21] MEDS ORDERED: LIDOCAINE HCL 2% 2 ML VIAL/AMP(20MG/ML) INFIL ONE (10:21)
[2020-12-21] MEDS ORDERED: PROPOFOL IV EMULSION 10 MG/ML 20 ML VIAL IV ONE (10:21)
[2020-12-21] MEDS ORDERED: EPINEPHrine INJ 1 MG/ML AMP ONE (12:48)
--- NOTE | 2020-12-21 12:59 | GI REPORT ---
Patient Name: Erin Sanchez Procedure Date: 12/21/2020 12:18 PM Date of : 1955 Admit Type: Inpatient Age: 65 Gender: Female Attending MD: Arturo Campos DO Procedure: Colonoscopy Providers: Arturo Campos DO Referring MD: Referred SelfMarcus Indications: Treatment of bleeding from polypectomy site Medicines: Monitored Anesthesia Care Complications: No immediate complications. Estimated Blood Loss: Estimated blood loss: none. Procedure: Pre-Anesthesia Assessment: - Prior to the procedure, a History and Physical was performed, and patient medications and allergies were reviewed. The patient's tolerance of previous anesthesia was also reviewed. The risks and benefits of the procedure and the sedation options and risks were discussed with the patient. All questions were answered, and informed consent was obtained. Prior Anticoagulants: The patient has taken Eliquis (apixaban), last dose was 1 day prior to procedure. ASA Grade Assessment: III - A patient with severe systemic disease. After reviewing the risks and benefits, the patient was deemed in satisfactory condition to undergo the procedure. After I obtained informed consent, the scope was passed under direct vision. Throughout the procedure, the patient's blood pressure, pulse, and oxygen saturations were monitored continuously. The Scope was introduced through the anus and advanced to the terminal ileum. The colonoscopy was performed without difficulty. The patient tolerated the procedure well. The quality of the bowel preparation was good. The terminal ileum, ileocecal valve, appendiceal orifice, and rectum were photographed. Findings: The perianal and digital rectal examinations were normal. Active bleeding was seen in the cecum, secondary to previous polypectomy procedure. To prevent bleeding after the polypectomy, three hemostatic clips were successfully placed (MR conditional). There was no bleeding at the end of the procedure. Area was successfully injected with 2 mL of a 1:10,000 solution of epinephrine for hemostasis. Impression: - Bleeding in the cecum secondary to previous polypectomy. Clips (MR conditional) were placed. Injected. - No specimens collected. Recommendation: - Return patient to hospital espinal for ongoing care. - Advance diet as tolerated. - Resume Eliquis (apixaban) at prior dose in 3 days. Arturo Campos DO 12/21/2020 12:58:45 PM This report has been signed electronically. Note Initiated On: 12/21/2020 12:18 PM Number of Addenda: 0 I attest to the content of the Intraoperative Record and orders documented therein, exceptions below {[id number]}
--- NOTE | 2020-12-21 14:40 | Anesthesiology Progress Note ---
Date of Service December 21, 2020 Anesthesia Post Procedure Vital Signs Vital Signs: Temp Pulse Pulse Resp BP BP Pulse Ox 12/21/20 13:15 90 16 126/74 98 12/21/20 13:00 90 16 144/81 H 97 12/21/20 12:45 90 18 117/64 98 12/21/20 11:53 36.5 C 102 H 16 160/80 H 97 12/21/20 11:23 36.7 C 59 L 18 113/75 95 12/21/20 10:02 86 12/21/20 07:46 36.5 C 59 L 20 134/70 96 12/21/20 04:59 102 H 12/21/20 02:31 37.4 C 98 H 18 143/84 H 97 12/21/20 02:00 96 H 16 173/73 H 95 12/21/20 01:00 98 H 20 154/78 H 98 12/21/20 00:00 98 H 20 149/73 H 98 12/20/20 23:26 99 H 16 151/84 H 99 12/20/20 22:44 36.8 C 89 18 138/74 99 Pain Intensity Foot: Pain Intensity: 4 Transfer of Care Handoff Completed per policy Notes Mental Status: alert / awake / arousable and participated in evaluation Patient Amnestic to Procedure: Yes Nausea / Vomiting: adequately controlled Pain: adequately controlled Airway Patency, RR, SpO2: stable & adequate BP & HR: stable & adequate Hydration State: stable & adequate Anesthetic Complications: no major complications apparent and Pt Satisfied with anesthetic care
--- NOTE | 2020-12-21 16:49 | Electrocardiogram Report ---
Test Reason : Blood Pressure : / mmHG Vent. Rate : 093 BPM Atrial Rate : 096 BPM P-R Int : 000 ms QRS Dur : 142 ms QT Int : 408 ms P-R-T Axes : 000 -62 075 degrees QTc Int : 507 ms Atrial fibrillation Right bundle branch block Left anterior fascicular block Bifascicular block Minimal voltage criteria for LVH, may be normal variant Abnormal ECG When compared with ECG of 31-MAR-2017 07:51, T wave inversion now evident in Lateral leads Confirmed by Natan Damian ([id number]) on 12/21/2020 4:48:59 PM Referred By: REFERRED SELF Confirmed By:Asad Damian
--- NOTE | 2020-12-21 17:49 | Hospitalist Progress Note ---
Date of Service December 21, 2020 Assessment & Plan (1) Colonoscopy causing post-procedural bleeding: Erin Sanchez is a 65 yo female with an extensive PMHx including permanent AF (on Eliquis and metoprolol), previous kidney transplant (on Cellcept and tacrolimus), DM, HTN, anemia, and GERD who was admitted on 12/20/20 due to post- colonoscopy bleeding. Colonoscopy causing post-procedural bleeding - Acute lower GI bleeding s/p polypectomy of large (12 mm) cecal polyp performed yesterday - HD stable - Hgb 10 - GI consulted. appreciate their assistance and recommendations. - Patient underwent repeat colonoscopy with GI, Dr. Campos, today (12/21/20) -- Bleeding in the cecum secondary to previous polypectomy. Clips (MR conditional) were placed. Injected with epinephrine. - Per GI recommendations: return to floor for continued monitoring and care, advance diet as tolerated, resume Eliquis at prior dose in 3 days - Will continue to hold anticoagulation per GI recommendations and plan to restart Eliquis 12/24/20 - Will check CBC and BMP in AM - Transfuse as needed/for Hgb < 7 Kidney transplanted - Creatinine stable and at baseline - Avoid nephrotoxic agents - Renal dosing where needed - Monitor BUN, Cr, electrolytes, UOP - Continue home medications - CellCept and Prograf Permanent atrial fibrillation - Rate controlled - Continue monitoring on tele - Hold apixaban in setting of bleed s/p colonoscopy with repeat colonoscopy today; will restart apixaban on 12/24/20 - Continue Metoprolol Dyslipidemia - Continue Atorvastatin Diabetes mellitus - Continue Lantus - 20 units qHS and ISS - Hold Metformin - Continue Gabapentin for peripheral neuropathy Hypertension - Blood pressure stable; continue Metoprolol Anemia - Chronic. Currently slightly lower than baseline. - Transfusion as needed for Hgb < 7 FEN/GI: Full liquid diet --> advancing diet as tolerated DVT Ppx: Chemical ppx deferred due to current bleed; encouraged OOB and frequent ambulation; do not expect prolonged hospitalization Dispo: med surge/tele Full Code (2) Kidney transplanted: (3) Diabetes mellitus: (4) Permanent atrial fibrillation: (5) Hypertension: (6) Hypercholesterolemia: (7) Anemia: Admission and Anticipated Discharge Date Admission Date: December 21, 2020 Supervising Physician Co-Signing Physician Notes Patient seen and examined with PGY-1 Dr. Hernandez. Agree with history, exam findings, assessment and plan of care as outlined. In brief, Ms. Sanchez is a 65 year old female with history significant for Afib (AC with Eliquis), s/p renal transplant, DM and HTN admitted for lower GI bleeding following colonoscopy/polypectomy yesterday. She underwent colonoscopy today with GI where 3 clips were placed. She has not had any further bleeding, but also has not had any bowel movements since her repeat colonoscopy today. She otherwise feels well. Her biggest concern is that the IV was placed in the right AC and is painful when she bends the elbow when she knits or moves. VS and nursing notes reviewed. She is well appearing. Not pale. Heart is irregularly irregular. No murmur. Left arm with fistula. Able to speak in long sentences. Does not appear dyspneic with moving from the bedside chair to the bed. Abdomen soft, nontender. 1. post-polypectomy bleeding. S/p repeat colonoscopy where 3 clips were placed at the site. monitor for re-bleeding. 2. anemia. Mild. hemoglobin on admission 11.5-->10. Transfuse below 7. 3. uncomfortable IV. Not infiltrated. Will have IV team replaced IV in hand so she is able to knit. 4. hx of renal transplant. renal function appropriate and at baseline. Continue home tacrolimus and mycophenolate. 5. a fib. rate controlled. continue home metoprolol. Holding apixaban. Can restart this on 12/24. 6. DM with neuropathy. holding home metformin. continue lantus and gabapentin. Dispo: if no re-bleeding, anticipate that she will be able to be discharged home tomorrow. Subjective Patient had a colonoscopy on the afternoon of 12/20/20 during which time a 12 mm sessile polyp was removed from the cecum. Several hours after leaving the hospital, patient noticed bleeding from the rectum; at that time she called GI and it was recommended that she return to the hospital. Patient seen and evaluated at bedside. At that time of my interview and examina tion, she has already undergone a second colonoscopy for evaluation of post- procedure bleeding. Patient was found to have bleeding from the polypectomy site in the cecum. Bleeding was controlled with clips and epinephrine. She states that she is doing well at this time. Patient tolerated a clear liquid diet for lunch without difficulty; no nausea or vomiting. She has not yet had flatus nor a BM since the procedure today. Patient with no complaints of pain. She does request for the IV to be moved to a different location as it is bothering her being in the antecubital fossa. Review of Systems Review of Systems: See HPI Physical Exam Physical Exam: GENERAL: Very pleasant, obese, female in no acute distress. Well developed and well nourished. Vital signs reviewed. EYES: EOMI. Anicteric sclerae. HENT: Moist mucous membranes. RESPIRATORY: Clear to auscultation bilaterally. No wheezing, rales, or rhonchi. CARDIOVASCULAR: Irregularly irregular rhythm. Normal rate. No murmurs. ABDOMEN: Obese abdomen. Soft. Non-tender and non-distended. Hypoactive bowel sounds. NEUROLOGIC: A/O x3. No focal neurological deficits. PSYCHIATRIC: Cooperative. Appropriate mood and affect. Results & Data Results & Data ([facility]) Vital Signs (Past 12 Hours) Vital Signs Temp Pulse Pulse Resp BP Pulse Ox 12/21/20 14:43 36.5 C 80 18 122/77 96 12/21/20 13:15 90 16 126/74 98 12/21/20 13:00 90 16 144/81 H 97 12/21/20 12:45 90 18 117/64 98 12/21/20 11:53 36.5 C 102 H 16 160/80 H 97 12/21/20 11:23 36.7 C 59 L 18 113/75 95 12/21/20 10:02 86 12/21/20 07:46 36.5 C 59 L 20 134/70 96 Resident Activity Tracking Resident Involvement: Resident Care Provided Care Provided: Adult Hospital Medicine (1) Diabetes mellitus Diabetes mellitus complication detail: with polyneuropathy Diabetes mellitus complication status: with neurologic complications Diabetes mellitus mcfp insulin use: with mcfp use Diabetes mellitus type: type 2 Qualified Code(s): E11.42 - Type 2 diabetes mellitus with diabetic polyneuropathy; Z79.4 - alf (current) use of insulin (2) Anemia Anemia type: unspecified type Qualified Code(s): D64.9 - Anemia, unspecified (3) Hypertension Hypertension type: essential hypertension Qualified Code(s): I10 - Essential (primary) hypertension
[2020-12-21] MEDS ORDERED: INSULIN GLARGINE SOLOSTAR 100 UNITS/ML 3 ML PEN SQ SCH (21:00)
[2020-12-21] MEDS ORDERED: ATORVASTATIN 20 MG TAB PO SCH (21:00)
[2020-12-21] MEDS ORDERED: GABAPENTIN 400 MG CAP PO SCH (21:00)
[2020-12-21] MEDS ORDERED: NON-FORMULARY MEDICATION (Biotin 1,000 mcg tablet,chewable) PO SCH (21:00)
[2020-12-21] MEDS ORDERED: Nursing to Pharmacy Communication SCH (21:30)
[2020-12-22 07:12] LABS: Basophils # (auto) 0.03 K/uL (0-0.2); Basophils % (auto) 0.9 %; Eosinophils # (auto) 0.15 K/uL (0-0.5); Eosinophils % (auto) 4.5 %; Hematocrit (blood only) 28.4 % (37-47); Hemoglobin 9.2 g/dL (12.0-16.0); Lymphocytes # (auto) 0.94 K/uL (1.2-3.4); Lymphocytes % (auto) 28.1 %; Mean Corpuscular Hemoglobin 28.7 pg (25-34); Mean Corpuscular Hgb Conc 32.4 g/dL (32-36); Mean Corpuscular Volume 88.5 fL (80-100); Mean Platelet Volume 9.6 fL (7.4-10.4); Monocytes # (auto) 0.41 K/uL (0.11-0.59); Monocytes % (auto) 12.2 %; Neutrophils # (auto) 1.82 K/uL (1.4-6.5); Neutrophils % (auto) 54.3 %; Platelet Count 174 K/uL (130-400); RDW Coefficient of Variation 14.9 % (11.5-14.5); RDW Standard Deviation 48.1 fL (36.4-46.3); Red Blood Count 3.21 M/uL (4.2-5.4); White Blood Count 3.35 K/uL (4.8-10.8)
[2020-12-22] MEDS: INSULIN ASPART 100 UNITS/ML 3 ML PEN SC SCH ×2 (07:39→12:02)
[2020-12-22 07:50] LABS: BUN Creatinine Ratio 13.4 (10-20); Creatinine Clr Calc Pharmacy 69.3 ml/min; Est GFR (African American) 71.9; Est GFR (Non-African American) 62.1; Potassium 3.4 mmol/L (3.5-5.1)
[2020-12-22] MEDS ORDERED: POTASSIUM CHLORIDE CRTAB 20 MEQ TABCR PO ONE (08:15)
[2020-12-22] MEDS: TACROLIMUS 1 MG PO SCH (08:31)
[2020-12-22] MEDS: BUMETANIDE 1 MG TAB PO SCH (08:38)
[2020-12-22] MEDS: METOPROLOL TARTRATE 50 MG TAB PO SCH (08:39)
[2020-12-22] MEDS: POTASSIUM CHLORIDE CRTAB 20 MEQ TABCR PO SCH (08:39)
[2020-12-22] MEDS: MYCOPHENOLATE MOFETIL 250 MG CAP PO SCH (08:39)
[2020-12-22] MEDS: MAGNESIUM OXIDE 400 MG TAB PO SCH (08:40)
[2020-12-22] MEDS: CALCIUM CARBONATE 500 MG CHEWABLE TAB PO SCH (08:40)
--- NOTE | 2020-12-22 12:15 | Gastroenterology Progress Note ---
Date of Service December 22, 2020 Assessment & Plan (1) Colonoscopy causing post-procedural bleeding: -Okay for discharge today -CBC on Friday -Hold Apixiban for 2 more days. Admission and Anticipated Discharge Date Admission Date: December 21, 2020 Supervising Physician Co-Signing Physician Notes Agree with KATIE Cee as above Patient was discharged prior to my evaluation Subjective Patient is a 65 yo female with a post-polypectomy bleed. She underwent a repeat colonoscopy on 12/21/20 during which time bleeding was noted in the cecum and a clip was placed. She reports no further GI bleeding. Her H/H is 9.2/28.4 today. She denies other complaints. Review of Systems Constitutional: no fever and no chills Respiratory: no cough and no dyspnea Cardiovascular: no chest pain Gastrointestinal: no abdominal pain and no blood in stools Physical Exam Constitutional: well developed Respiratory: normal respiratory effort Gastrointestinal (Abdomen): Inspection/Auscultation: abdomen normal to inspection Musculoskeletal: Head/Neck/Chest: normocephalic Psychiatric: A+Ox3, euthymic affect Results & Data Results & Data ([facility]) Vital Signs (Past 12 Hours) Vital Signs Temp Pulse Pulse Resp BP Pulse Ox 12/22/20 11:27 36.8 C 73 18 123/74 98 12/22/20 07:49 36.5 C 73 18 120/71 96 12/22/20 07:42 62 12/22/20 04:17 37.1 C 75 14 111/70 97 PG Care Time/CCT Total # of Minutes Spent Total Time Spent with Patient: Total time spent is greater than 50% in coordination of care (as documented) at patient's floor/unit and/or counseling patient: Coding Level of Care Code 13341 Subseq Hosp Care Lvl 3 Diagnoses Colonoscopy causing post-procedural bleeding K91.840
--- NOTE | 2020-12-22 13:12 | Discharge Summary ---
Date of Service December 22, 2020 Admission HPI Per Admitting Provider Erin Sanchez is a 65yo C female with complex medical history to include AF on Eliquis, s/p renal transplant on CellCept and Tacrolimus as well as DM, HTN. Patient had a colonoscopy performed yesterday with removal of a 12mm sessile polyp from the cecum with a hot snare. She had multiple small-mouthed diverticula as well as non-bleeding internal hemorrhoids. Procedure was well tolerated and patient returned to her hotel later in the day. She had dinner last evening and later began to pass large amounts of bright red blood per rectum with clots. She denies pain. Denies CP/SOB/palpitations/dizziness. Bloody BMs continued in the ER but have improved over the last hour. She held her Apixaban as instructed for the procedure since 12/18/20. Took her evening dose yesterday. Er Course: Tylenol. NSS. Gabapentin 400mg Admission Exam Per Admitting Provider General: patient resting comfortably, NAD, non-toxic in appearance, AA&O x 4 Skin: warm, dry, intact, no rashes or lesions HEENT: NC/AT, PERRL, EOMI, anicteric sclera, conjunctiva without injection, external ear normal to inspection and nontender, nares patent, dry mucus membranes, dentition intact, no oropharyngeal lesions, neck supple, trachea midline, no LAD, no thyromegaly, no JVD Heart: +S1/S2, regular, no m/r/g Lungs: equal air entry bilaterally, no rales/rhonchi/wheezes Abd: +BS, soft, NT/ND, no masses/organomegaly/ascites, midline hernia reducible Ext: warm, 2+ pulses in UE/LE bilaterally, no clubbing/cyanosis or edema, LUE AV fistula x 2, no thrill Neuro: nonfocal, patient AA&O x 4, speech intact, no facial droop, moving all extremities on command with equal strength 5/5 Principal Diagnosis post procedural colonoscopy bleeding Discharge Exam GENERAL: No acute distress. Well developed and well nourished. Vital signs reviewed. EYES: EOMI. Anicteric sclerae. HENT: Moist mucous membranes. RESPIRATORY: Clear to auscultation bilaterally. No wheezing, rales, or rhonchi. CARDIOVASCULAR: Irregularly irregular rhythm. Regular rate. No murmurs. ABDOMEN: Soft, non-tender. Normal bowel sounds. EXTREMITIES: Non-tender. SKIN: Warm, dry. Ecchymosis to right antecubital fossa at site of prior peripheral IV. NEUROLOGIC: A/O x3. No focal neurological deficits. PSYCHIATRIC: Cooperative. Appropriate mood and affect. Discharge Data Allergies Allergy/AdvReac Type Severity Reaction Status Date / Time erythromycin base AdvReac Severe "would Verified 12/21/20 00:51 interact overtime with my transplant meds" Consultations 12/21/20 00:43 ED Decision to Admit Stat 12/21/20 06:00 Consult Gastroenterology Routine Procedures Performed Operation Date: 12/21/20 17:00 Actual Procedures p Colonoscopy Hemostasis - Arturo Campos, DO Hospital Course (1) Colonoscopy causing post-procedural bleeding: Erin Sanchez is a 65 yo female with an extensive PMHx including permanent AF (on Eliquis and metoprolol), previous kidney transplant (on Cellcept and tacrolimus), DM, HTN, anemia, and GERD who was admitted on 12/20/20 due to post- colonoscopy bleeding. Colonoscopy causing post-procedural bleeding - Acute lower GI bleeding s/p polypectomy of large (12 mm) cecal polyp performed yesterday - Patient underwent repeat colonoscopy with GI, Dr. Campos, today (12/21/20) -- Bleeding in the cecum secondary to previous polypectomy. Clips (MR conditional) were placed. Injected with epinephrine. - Remained HD stable - Hgb decreased from 10.0 to 9.2; would recheck CBC on 12/25/20 - Patient report liquid BM on day of discharge w/o blood - Will continue to hold anticoagulation per GI recommendations and plan to restart Eliquis 12/24/20 Kidney transplanted - Creatinine stable and at baseline (Cr 0.96 on day of discharge) - Continue home medications - CellCept and Prograf Permanent atrial fibrillation - Rate controlled - Hold apixaban in setting of bleed s/p colonoscopy with repeat colonoscopy today; will restart apixaban on 12/24/20 - Continue Metoprolol Dyslipidemia - Continue Atorvastatin Diabetes mellitus - Metformin held during admission. - On discharge, resume Metformin and continue home insulin - Continue Gabapentin for peripheral neuropathy Hypertension - Blood pressure stable; continue Metoprolol Anemia - Chronic. Currently slightly lower than baseline. - Transfusion as needed for Hgb < 7 Total Time Total Time Spent Total Time Spent (In Minutes): See attending attestation Discharge Plan Discharge Items Patient Disposition: Home - Self-Care Reason For Visit: RECTAL BLEEDING, S/P POLYPECTOMY Discharge Diagnosis: post-procedural colonoscopy bleeding Condition on Discharge: Good Activity: Per Instructions section Non-emergency contact: Primary Care Provider Call non-emergency contact if: you have any medication questions and your symptoms worsen Follow-up/Referrals: Marcus Jaramillo MD [Primary Care Provider] - 12/29/20 3:00 pm Diet: Carb Consistent or DM2 Ambulatory Orders: Complete Blood Count no Diff (Timed) Timeframe: 20201225 Location: Determined by Patient Ordered By: Yarely Kelly Attending Provider Instructions: Erin Sanchez, It was our pleasure to care for you at [facility] from 12/21/20 to 12/22/20. You were admitted after experiencing rectal bleeding after colonoscopy procedure. You had a second colonoscopy and had clips placed and epinephrine (a medication) injected to control the bleeding. You have been doing well since the second colonoscopy and have not had recurrent bleeding. At this time, it is safe for you to be discharged home. As we discussed, you should continue to hold home Eliquis; restart the Eliquis on 12/24/20 at your home dose (5mg by mouth twice a day). Please get repeat blood work (a CBC to evaluate your blood counts) on 12/25/20. You should follow up with your primary care physician in 3-4 days (early next week). You should also follow up with your bit tapper, Dr. Naidu, as scheduled. Pending Studies at Discharge: No Stand-Alone Forms: My [facility] In[facility], Smoking Cessation Medications and DC Order Prescriptions: Continued (DME) pen needle, diabetic [BD Ultra-Fine [place] Pen Needle] 32 gauge x 5/32" needle See Rx Instructions .ROUTE .MEDSUPPLY Qty: 100 RF: 3 metformin 500 mg tablet 1,000 mg PO BID Qty: 360 RF: 3 aspirin 81 mg tablet,delayed release (DR/EC) 81 mg PO QPM RF: 0 calcium carbonate 200 mg calcium (500 mg) tablet,chewable 400 mg PO BID RF: 0 cinnamon bark 500 mg capsule 500 mg PO BID RF: 0 cranberry 400 mg capsule 400 mg PO BID RF: 0 magnesium oxide 400 mg (241.3 mg magnesium) tablet 400 mg PO BID Qty: 120 RF: 0 multivitamin [Daily Multi-Vitamin] tablet 1 tab PO QAM RF: 0 mycophenolate mofetil 500 mg tablet 1,000 mg PO BID Qty: 120 RF: 0 potassium chloride 10 mEq tablet extended release 20 meq PO BID RF: 0 tacrolimus 1 mg capsule,extended release 24hr 2 mg PO QAM RF: 0 (DME) OneTouch Ultra Blue Test Strip Strip See Dose Instructions .ROUTE .MEDSUPPLY Qty: 100 RF: 3 (DME) lancets [ReliOn Thin Lancets] 26 gauge misc See Dose Instructions .ROUTE .MEDSUPPLY Qty: 100 RF: 0 biotin 1,000 mcg tablet,chewable 1,000 mcg PO QPM RF: 0 Eliquis 5 mg tablet 5 mg PO BID Qty: 180 RF: 3 metoprolol tartrate 50 mg tablet 50 mg PO BID Qty: 180 RF: 3 metoprolol tartrate 25 mg tablet 25 mg PO BID Qty: 180 RF: 3 atorvastatin 20 mg tablet 20 mg PO QPM RF: 0 bumetanide 2 mg tablet 2 mg PO QAM RF: 0 gabapentin 400 mg capsule 400 mg PO QPM RF: 0 Lantus Solostar U-100 Insulin 100 unit/mL (3 mL) insulin pen 22 unit SQ QPM RF: 0 Discharge Orders: Discharge Order (Routine); Ordered 12/22/20 Ordered By: Yarely Hernandez Admission Data Admit Date/Time: 12/21/20 01:55 Attending Provider: Aric May Admit Provider: Kim Braga Primary Care Provider: Marcus Jaramillo Other Providers: Kim Braga ; Arturo Campos Other Interventions: Discharge Summary Assessment (RN) Last Done: 12/22/20 13:35 Supervising Physician Co-Signing Physician Notes Attending attestation Pt seen and examined in concert with Dr. Hernandez. In agreement with the documented findings as noted in the resident documentation with any exceptions or additions as noted here. Resting comfortably in chair at bedside without complaint. BM was soft/liquid but without melena/hematochezia. On examination, S1/S2 nl RRR no MCG. CTAB. Abd NT/ND BS+ve Hematochezia s/p polypectomy on AC s/p clip placement - Hgb has dropped only slightly but without any hematochezia/melena reported. Recheck CBC on 12/25 and follow closely. AC as noted below. Precautions reviewed re: acute bleeding, change in CBC Atrial fibrillation - rate controlled on metoprolol. Resume apixaban on 12/24 h/o renal transplant - continue cellcept and prograf, f/u as scheduled Else see resident documentation as noted. Total attending time spent on this patient's case on the day of discharge: 40 minutes. Resident Activity Tracking Resident Involvement: Resident Care Provided Care Provided: Adult Hospital Medicine
== END 2020-12-22 13:56 | disposition home or self-care (01) ==
LOC: ED 22:41 → 2N 22:41 → SUATTDRO 12-21 01:55 → 2N 12-21 02:18

== ENCOUNTER 2024-05-08 13:46 | Inpatient (IN) ==
[2024-05-08 14:48] LABS: Basophils # (auto) 0.01 K/uL (0.00-0.20); Basophils % (auto) 0.3 %; Eosinophils # (auto) 0.04 K/uL (0.00-0.50); Eosinophils % (auto) 1.2 %; Hematocrit (blood only) 36.9 % (37.0-47.0); Hemoglobin 11.6 g/dl (12.0-16.0); Immature Granulocytes # (auto) 0.01 K/uL (0.01-0.20); Immature Granulocytes % (auto) 0.3 %; Lymphocytes # (auto) 0.82 K/uL (1.20-3.40); Lymphocytes % (auto) 25.5 %; Mean Corpuscular Hgb Conc 31.4 g/dL (32.0-36.0); Mean Corpuscular Volume 82.6 fL (80.0-100.0); Mean Platelet Volume 10.8 fL (9.4-12.4); Monocytes # (auto) 0.32 K/uL (0.11-0.59); Neutrophils # (auto) 2.01 K/uL (1.40-6.50); Neutrophils % (auto) 62.7 %; Platelet Count 121 K/uL (130-400); RDW Coefficient of Variation 16.5 % (11.5-14.5); Red Blood Count 4.47 M/uL (4.20-5.40); White Blood Count 3.21 K/ul (4.8-10.8)
--- NOTE | 2024-05-08 14:59 | XRay Report ---
SINGLE VIEW CHEST CLINICAL HISTORY: Hemoptysis FINDINGS: An AP, portable, upright chest radiograph is compared to study dated 04/29/2011 and correlate d with abdominal CT dated 04/21/2024. The heart is enlarged and noting atherosclerotic calcification o f the thoracic aorta. There is pulmonary vascular congestion. Airspace consolidation is seen at the r ight lung base. Mild opacities are also seen at the left lung base. No large pleural effusion or Pneu mothorax is seen. The skeletal structures are osteopenic. The bony thorax is grossly intact. IMPRESSION: 1. Cardiomegaly with pulmonary vascular congestion. 2. Airspace consolidation at the right lung base is typical for pneumonia/aspiration pneumonitis. Cli nical correlation will be required and radiographic follow-up to resolution is recommended. 3. Mild nonspecific opacities are also seen at the left lung base. ACT 112: Negative or not required by law. Electronically signed by: Eugenio Alonso M.D. 05/08/2024 2:57 PM
[2024-05-08 15:02] LABS: Albumin Globulin Ratio 1.8 (0.9-2); Albumin Level 4.2 gm/dl (3.4-5.0); BUN Creatinine Ratio 13.6 (10-20); Bilirubin,Total 0.8 mg/dl (0.2-1.0); Calcium 9.1 mg/dl (8.6-10.3); Creatinine Clr Calc Pharmacy 54.4 ml/min; Est GFR (African American) 59.7 ml/min; Est GFR (Non-African American) 51.5 ml/min; Globulin 2.3 gm/dl (2.5-4.0); Total Protein 6.5 gm/dl (6.0-8.3)
--- NOTE | 2024-05-08 15:05 | Emergency Department Note ---
Impression & Plan Hypoxia, Bronchopneumonia due to human metapneumovirus (hMPV), Hemoptysis Admit to the [facility] ED Provider Note NAME: JHONY MA AGE: 68 SEX: Female INFORMANT: Patient ED PROVIDER(S): Dawna Valderrama DO CHIEF COMPLAINT: coughing up blood PLAN: Disposition: admit to the [facility] MEDICAL DECISION MAKING: this is a 68-year-old female patient with a history of kidney transplant who presents to the emergency department after coughing up blood at home. Patient describes a extended history of respiratory illness over the past 6 months. She had taken a course of antibiotics in the spring and felt she was getting slightly better but has developed a harsh productive cough over the past couple of weeks that has worsened in the past couple days causing her to feel short of breath and now to cough up blood. On presentation today, the patient is hypoxic with any type of exertion. She was placed on supplemental oxygen upon presentation. She has significant leukopenia and thrombocytopenia. Lactate and procalcitonin were negative. Her presentation is consistent with a viral illness. Human metapneumovirus was positive on the bio fire. Chest x-ray shows evidence of bilateral pneumonias. I discussed the case with the [facility] and they will evaluate for further inpatient care. Care/management discussed with: ancillary services manager and the [facility]ist., Other viral illness Triage Nursing notes: reviewed and agree with them. Vital Signs: reviewed and remarkable for hypertension and hypoxia Chronic Medical/Social Conditions affecting care: kidney transplant Differential Diagnosis: PE, pneumonia, COVID, bronchitis Diagnostics, independently interpreted by me: ECG: A-fib with a slow ventricular rate of 49 with right bundle branch block and no ectopy Cardiac Monitoring: atrial fibrillation at a rate of 55 Imaging studies: portable chest x-ray: As per my independent interpretation bilateral basilar opacities HPI: 68 year old Female arrives for evaluation of hemoptysis. patient describes having a cough intermittently productive for months. She took antibiotics in the spring but did not get complete resolution of her symptoms. She became more concerned today as she was coughing up blood. Patient has a history of kidney transplant. she does take Eliquis for A-fib. She does describe exertional shortness of breath which is not unusual for her. This has not worsened. PAST MEDICAL HISTORY: See Below, PAST SURGICAL HISTORY: See Below, SOCIAL HISTORY: See Below, HOME MEDICATIONS: See list ALLERGIES: erythromycin VITALS: See Below PHYSICAL EXAMINATION: HEENT: Head - normocephalic and atraumatic. Pupils are equal, round, and reactive to light. Extraocular eye muscles are intact, and sclera are anicteric. Nose - moist nasal mucosa without discharge. Mouth - moist buccal mucosa. Oropharynx is nonerythematous and there is no tonsillar exudate or edema noted. Neck: Supple; no JVD, nuchal rigidity, cervical lymphadenopathy, or auscultated bruits. Heart: Regular rate and rhythm. There is a normal S1 and S2 with no murmurs, clicks, or gallops appreciated. Lungs: Clear to auscultation bilaterally with no wheezes, rales, or rhonchi. Abdomen: Soft, completely nontender, nondistended, with good bowel sounds. There are no palpable pulsatile masses or hepatosplenomegaly. There is no guarding, rigidity, or rebound noted. Extremities: lower extremity edema, especially in the feet with the left being greater than the right. Skin: Pale, warm and dry with good turgor and no rashes. Emergency department treatment: site monitor, supplemental oxygen, IV Rocephin Emergency department course: Patient was initially evaluated in [facility] and moved to room . A complete history and physical was performed. A septic protocol was performed. The patient was placed on supplemental oxygen because of hypoxia. Laboratory studies were drawn as above. Portable chest x-ray was performed. This revealed evidence of bibasilar pneumonias. The patient was given a dose of IV Rocephin. Original nasal swab was negative for COVID, RSV and influenza. I added on a bio fire which did reveal human metapneumovirus. The case was discussed with the [facility] Hospitalist and they will evaluate for further inpatient care. I have personally spent greater than 30 minutes of critical care time in the direct management of this patient. This includes bedside care, interpretation of diagnostic studies, and testing, discussion with consultants, patient, and family members, and other required patient management activities. This 30 minutes is in excess of all separately billable procedures. Past Med/Surg History Problem List (Updated 05/09/24 @ 11:02 by Dawna Valderrama DO) Hemoptysis (Acute) Bronchopneumonia due to human metapneumovirus (hMPV) (Acute) Hypoxia (Acute) Post-nasal drip Hypoxia Community acquired pneumonia Hydronephrosis Sensory ataxia Albuminuria Obesity (BMI 30.0-34.9) Bradycardia Hypotension Osteoarthritis of hand Neuropathy Vitamin D deficiency Diverticula of colon (Chronic) Kidney transplanted (Chronic) History of kidney transplant (Chronic) Arthritis (Acute) Cardiomyopathy (Acute) Diabetic peripheral neuropathy (Chronic) End stage renal disease (Acute) had transplant currently doing well Gastroesophageal reflux disease (Chronic) Hypercholesterolemia (Chronic) Hypertension (Chronic) Mass of pelvis (Acute) Obesity (Acute) On anticoagulant therapy (Acute) eliquis Osteopenia (Acute) Other complication of arteriovenous dialysis fistula (Acute) Permanent atrial fibrillation (Chronic) follows with Dr. Naidu--on eliquis and metoprolol Post herpetic neuralgia (Acute) Tubular adenoma of colon (Acute) Venous insufficiency (Acute) Dyslipidemia Diabetes mellitus Frequent PVCs Dizziness Loss of protective sensation of skin of foot Pre-ulcerative calluses Type 2 diabetes mellitus Urine frequency Cystitis Diabetes mellitus type II, controlled (Chronic) Conjunctivitis, left eye Abnormal mammogram Bifascicular bundle branch block History of colon polyps Acute lower GI bleeding (Acute) Anticoagulated (Acute) Colonoscopy causing post-procedural bleeding Anemia Anticoagulant long-term use Tubulovillous adenoma polyp of colon Type 2 diabetes mellitus, uncontrolled Medical History LGI bleed Inferior vena cava interruption UTI (urinary tract infection) Thrombophlebitis of deep vein of lower leg History of blood clots Anemia Surgical History History of esophagogastroduodenoscopy (EGD) S/P arteriovenous (AV) fistula creation x2 History of colonoscopy with polypectomy History of colostomy (~07/1999) 6 inches removed d/t diverticulitis @ [facility] History of colostomy reversal (~04/2000) @ [facility] History of wisdom tooth extraction History of sinus surgery History of left cataract extraction History of cardiac radiofrequency ablation (RFA) S/P dilatation and curettage S/P cholecystectomy (~2006) Kidney replaced by transplant x2--1987 @ [facility] [place] @ [facility] [place] S/P appendectomy S/P hysterectomy S/P tooth extraction Family History Mother Diverticula of colon Father Myocardial infarction Thrombophlebitis Grandfather (Maternal) Myocardial infarction Brother Family hx colonic polyps Other No family history of adverse response to anesthesia Social History Smoking Status: Former smoker Tobacco Type: Cigarettes Second Hand Exposure: No; Do You Dip or Chew Tobacco: No; Tobacco Cessation Education Requested by Patient: No Hx Alcohol Use: Yes Alcohol type: wine Hx Substance Use: No Preferred Language: Hebrew Communication Ability: Effective Cio Required: No Beliefs That Will Affect Care: None marital status: Single Current Living Situation: Alone Feels Safe at Home: Yes Safety Concerns: Feels Safe At This Time Assistive Devices: None Allergies Allergies Allergy/AdvReac Type Severity Reaction Status Date / Time erythromycin base AdvReac Severe "would Verified 05/08/24 16:30 interact overtime with my transplant meds" Home Meds Home Medications Medication Instructions Recorded Confirmed calcium carbonate 400 mg PO BID 06/09/19 05/08/24 cinnamon bark 500 mg capsule 500 mg PO BID 06/09/19 05/08/24 cranberry 400 mg capsule 400 mg PO BID 06/09/19 05/08/24 magnesium oxide 400 mg (241.3 mg 400 mg PO BID #120 tabs 06/09/19 05/08/24 magnesium) tablet multivitamin (Daily Multi-Vitamin 1 tab PO QAM 06/09/19 05/08/24 tablet) tacrolimus 1 mg capsule,extended 2 mg PO QAM 06/24/19 05/08/24 release 24 hr lancets 26 gauge (ReliOn Thin #100 ea 07/12/19 03/15/24 Lancets) mycophenolate mofetil 250 mg 750 mg PO BID 09/05/22 05/08/24 capsule potassium citrate 99 mg capsule 198 mg PO BID 09/15/23 05/08/24 biotin 1,000 mcg chewable tablet 1,000 mcg PO QPM PRN Unknown 10/08/23 05/08/24 vitamins A,C,Y-rgww-kuajry 2,148 1 tab PO BID 10/08/23 05/08/24 mcg-113 mg-45 mg-17.4 mg tablet (PreserVision AREDS) insulin glargine 100 unit/mL (3 20 unit subcut QPM 03/15/24 05/08/24 mL) subcutaneous pen (Lantus Solostar U-100 Insulin) duloxetine 20 mg capsule,delayed 20 mg PO HS 05/08/24 05/08/24 release (Cymbalta) pregabalin 50 mg capsule (Lyrica) 50 mg PO UD 05/08/24 05/08/24 Previous Rx's Medication Instructions Recorded BD Ultra-Fine [place] Pen Needle 32 #100 ea 02/29/20 gauge x 5/32" (pen needle, diabetic) diabetic shoes #1 ea 07/30/21 metformin 500 mg tablet 1,000 mg (2 x 500 mg) PO BID #360 07/07/23 tabs blood sugar diagnostic (OneTouch #100 ea 10/08/23 Ultra Test strips) apixaban 5 mg tablet (Eliquis) 5 mg PO BID #180 tabs 01/09/24 atorvastatin 20 mg tablet 20 mg PO QPM #90 tabs 01/16/24 bumetanide 2 mg tablet 2 mg PO QAM #90 tabs 01/16/24 semaglutide 0.25 mg or 0.5 mg (2 0.5 mg (0.736 mL) subcut Q7D 90 02/05/24 mg/3 mL) subcutaneous pen injector days #9 mL Results & Data (ED) Vital Signs Vital Signs - 24 hr 05/08/24 13:58 05/08/24 14:54 05/08/24 15:05 Temperature 36.8 C Temperature Source Temporal Artery Scan Pulse Rate 52 L Pulse Rate [Left Finger] 55 L Respiratory Rate 18 20 Respiratory Effort / Characteristics Non-Labored Spontaneous Respiratory Depth Normal Blood Pressure 175/67 H Blood Pressure [Right Arm] 116/65 Blood Pressure Mean 103 Blood Pressure Mean [Right Arm] 82 Blood Pressure Position [Right Arm] Sitting Pulse Oximetry 95 86 L 94 Oxygen Delivery Method Room Air Nasal Cannula Oxygen Flow Rate 2 Sepsis Recent Fever Within 48 Hours No Sepsis New/Unexplained Change in Mental Status No Sepsis Action Taken by Nursing No Action Required 05/08/24 15:13 Temperature Temperature Source Pulse Rate 53 L Pulse Rate [Left Finger] Respiratory Rate Respiratory Effort / Characteristics Respiratory Depth Blood Pressure Blood Pressure [Right Arm] Blood Pressure Mean Blood Pressure Mean [Right Arm] Blood Pressure Position [Right Arm] Pulse Oximetry Oxygen Delivery Method Oxygen Flow Rate Sepsis Recent Fever Within 48 Hours Sepsis New/Unexplained Change in Mental Status Sepsis Action Taken by Nursing Laboratory Data 05/09/24 05:58 05/09/24 05:58 Lab Results 05/08/24 05/08/24 05/08/24 Range/Units 14:20 14:25 14:25 WBC 3.21 L (4.8-10.8) K/ul RBC 4.47 (4.20-5.40) M/uL Hgb 11.6 L (12.0-16.0) g/dl Hct 36.9 L (37.0-47.0) % MCV 82.6 (80.0-100.0) fL MCH 26.0 (25.0-34.0) pg MCHC 31.4 L (32.0-36.0) g/dL RDW Std Deviation 49.0 H (36.4-46.3) fL RDW Coeff of Tommy 16.5 H (11.5-14.5) % Plt Count 121 L (130-400) K/uL MPV 10.8 (9.4-12.4) fL Immature Gran % (Auto) 0.3 % Neut % (Auto) 62.7 % Lymph % (Auto) 25.5 % Griggs % (Auto) 10.0 % Eos % (Auto) 1.2 % Baso % (Auto) 0.3 % Neut # (Auto) 2.01 (1.40-6.50) K/uL Lymph # (Auto) 0.82 L (1.20-3.40) K/uL Griggs # (Auto) 0.32 (0.11-0.59) K/uL Eos # (Auto) 0.04 (0.00-0.50) K/uL Baso # (Auto) 0.01 (0.00-0.20) K/uL Immature Gran # (Auto) 0.01 (0.01-0.20) K/uL D-Dimer 400 (0-500) ug/L FEU Sodium 136 (136-145) mmol/L Potassium 4.0 (3.5-5.1) mmol/L Chloride 99 (98-107) mmol/L Carbon Dioxide 25 (21-32) mmol/L Anion Gap 12 H (3-11) BUN 15 (6-23) mg/dl Creatinine 1.10 (0.6-1.2) mg/dl Est Cr Clr Drug Dosing 54.4 ml/min Est GFR ( Amer) 59.7 ml/min Est GFR (Non-Af Amer) 51.5 ml/min BUN/Creatinine Ratio 13.6 (10-20) Glucose 132 H (70-99(Fasting)) mg/dl Lactate (0.4-2.0) mmol/L Calcium 9.1 (8.6-10.3) mg/dl Total Bilirubin 0.8 (0.2-1.0) mg/dl AST 23 (13-39) U/L ALT 11 (7-52) U/L Alkaline Phosphatase 56 (34-104) U/L Troponin I High Sens 29.5 H (0-14) pg/ml B-Natriuretic Peptide 223 H (0-100) pg/ml Total Protein 6.5 (6.0-8.3) gm/dl Albumin 4.2 (3.4-5.0) gm/dl Globulin 2.3 L (2.5-4.0) gm/dl Albumin/Globulin Ratio 1.8 (0.9-2) Procalcitonin 0.03 (0-0.5) ng/ml Adenovirus (PCR) Not Detected (NotDetected) B. pertussis DNA (PCR) Not Detected (NotDetected) B.parapertussis DNA PCR Not Detected (NotDetected) C. pneumoniae DNA (PCR) Not Detected (NotDetected) Coronavirus OC43 (PCR) Not Detected (NotDetected) Coronavirus HKU1 (PCR) Not Detected (NotDetected) Coronavirus 229E (PCR) Not Detected (NotDetected) SARS-CoV-2 (PCR) NEGATIVE Not Detected (Negative) Coronavirus NL63 (PCR) Not Detected (NotDetected) Human Metapneumovir PCR DETECTED A (NotDetected) Influenza Type A (PCR) Negative (Neg) Influenza Type B (PCR) (Neg) M. pneumoniae (PCR) (NotDetected) Parainfluenza 1 (PCR) (NotDetected) Parainfluenza 2 (PCR) (NotDetected) Parainfluenza 3 (PCR) (NotDetected) Parainfluenza 4 (PCR) (NotDetected) RSV (RT-PCR) (Neg) RSV (PCR) (NotDetected) Entero/Rhino (PCR) (NotDetected) 05/08/24 05/08/24 05/08/24 Range/Units 14:25 14:25 15:42 WBC (4.8-10.8) K/ul RBC (4.20-5.40) M/uL Hgb (12.0-16.0) g/dl Hct (37.0-47.0) % MCV (80.0-100.0) fL MCH (25.0-34.0) pg MCHC (32.0-36.0) g/dL RDW Std Deviation (36.4-46.3) fL RDW Coeff of Tommy (11.5-14.5) % Plt Count (130-400) K/uL MPV (9.4-12.4) fL Immature Gran % (Auto) % Neut % (Auto) % Lymph % (Auto) % Griggs % (Auto) % Eos % (Auto) % Baso % (Auto) % Neut # (Auto) (1.40-6.50) K/uL Lymph # (Auto) (1.20-3.40) K/uL Griggs # (Auto) (0.11-0.59) K/uL Eos # (Auto) (0.00-0.50) K/uL Baso # (Auto) (0.00-0.20) K/uL Immature Gran # (Auto) (0.01-0.20) K/uL D-Dimer (0-500) ug/L FEU Sodium (136-145) mmol/L Potassium (3.5-5.1) mmol/L Chloride (98-107) mmol/L Carbon Dioxide (21-32) mmol/L Anion Gap (3-11) BUN (6-23) mg/dl Creatinine (0.6-1.2) mg/dl Est Cr Clr Drug Dosing ml/min Est GFR ( Amer) ml/min Est GFR (Non-Af Amer) ml/min BUN/Creatinine Ratio (10-20) Glucose (70-99(Fasting)) mg/dl Lactate 2.0 (0.4-2.0) mmol/L Calcium (8.6-10.3) mg/dl Total Bilirubin (0.2-1.0) mg/dl AST (13-39) U/L ALT (7-52) U/L Alkaline Phosphatase (34-104) U/L Troponin I High Sens (0-14) pg/ml B-Natriuretic Peptide (0-100) pg/ml Total Protein (6.0-8.3) gm/dl Albumin (3.4-5.0) gm/dl Globulin (2.5-4.0) gm/dl Albumin/Globulin Ratio (0.9-2) Procalcitonin (0-0.5) ng/ml Adenovirus (PCR) (NotDetected) B. pertussis DNA (PCR) (NotDetected) B.parapertussis DNA PCR (NotDetected) C. pneumoniae DNA (PCR) (NotDetected) Coronavirus OC43 (PCR) (NotDetected) Coronavirus HKU1 (PCR) (NotDetected) Coronavirus 229E (PCR) (NotDetected) SARS-CoV-2 (PCR) (Negative) Coronavirus NL63 (PCR) (NotDetected) Human Metapneumovir PCR (NotDetected) Influenza Type A (PCR) Not Detected (Neg) Influenza Type B (PCR) Negative Not Detected (Neg) M. pneumoniae (PCR) Not Detected (NotDetected) Parainfluenza 1 (PCR) Not Detected (NotDetected) Parainfluenza 2 (PCR) Not Detected (NotDetected) Parainfluenza 3 (PCR) Not Detected (NotDetected) Parainfluenza 4 (PCR) Not Detected (NotDetected) RSV (RT-PCR) Negative (Neg) RSV (PCR) Not Detected (NotDetected) Entero/Rhino (PCR) Not Detected (NotDetected) 05/08/24 Range/Units 16:09 WBC (4.8-10.8) K/ul RBC (4.20-5.40) M/uL Hgb (12.0-16.0) g/dl Hct (37.0-47.0) % MCV (80.0-100.0) fL MCH (25.0-34.0) pg MCHC (32.0-36.0) g/dL RDW Std Deviation (36.4-46.3) fL RDW Coeff of Tommy (11.5-14.5) % Plt Count (130-400) K/uL MPV (9.4-12.4) fL Immature Gran % (Auto) % Neut % (Auto) % Lymph % (Auto) % Griggs % (Auto) % Eos % (Auto) % Baso % (Auto) % Neut # (Auto) (1.40-6.50) K/uL Lymph # (Auto) (1.20-3.40) K/uL Griggs # (Auto) (0.11-0.59) K/uL Eos # (Auto) (0.00-0.50) K/uL Baso # (Auto) (0.00-0.20) K/uL Immature Gran # (Auto) (0.01-0.20) K/uL D-Dimer (0-500) ug/L FEU Sodium (136-145) mmol/L Potassium (3.5-5.1) mmol/L Chloride (98-107) mmol/L Carbon Dioxide (21-32) mmol/L Anion Gap (3-11) BUN (6-23) mg/dl Creatinine (0.6-1.2) mg/dl Est Cr Clr Drug Dosing ml/min Est GFR ( Amer) ml/min Est GFR (Non-Af Amer) ml/min BUN/Creatinine Ratio (10-20) Glucose (70-99(Fasting)) mg/dl Lactate (0.4-2.0) mmol/L Calcium (8.6-10.3) mg/dl Total Bilirubin (0.2-1.0) mg/dl AST (13-39) U/L ALT (7-52) U/L Alkaline Phosphatase (34-104) U/L Troponin I High Sens 33.8 H (0-14) pg/ml B-Natriuretic Peptide (0-100) pg/ml Total Protein (6.0-8.3) gm/dl Albumin (3.4-5.0) gm/dl Globulin (2.5-4.0) gm/dl Albumin/Globulin Ratio (0.9-2) Procalcitonin (0-0.5) ng/ml Adenovirus (PCR) (NotDetected) B. pertussis DNA (PCR) (NotDetected) B.parapertussis DNA PCR (NotDetected) C. pneumoniae DNA (PCR) (NotDetected) Coronavirus OC43 (PCR) (NotDetected) Coronavirus HKU1 (PCR) (NotDetected) Coronavirus 229E (PCR) (NotDetected) SARS-CoV-2 (PCR) (Negative) Coronavirus NL63 (PCR) (NotDetected) Human Metapneumovir PCR (NotDetected) Influenza Type A (PCR) (Neg) Influenza Type B (PCR) (Neg) M. pneumoniae (PCR) (NotDetected) Parainfluenza 1 (PCR) (NotDetected) Parainfluenza 2 (PCR) (NotDetected) Parainfluenza 3 (PCR) (NotDetected) Parainfluenza 4 (PCR) (NotDetected) RSV (RT-PCR) (Neg) RSV (PCR) (NotDetected) Entero/Rhino (PCR) (NotDetected) Administered Medications Acetaminophen (Acetaminophen 500 Mg Tab) 1,000 mg PO Q8H PRN PRN Reason: Pain or Fever Stop: 06/08/24 03:41 Last Admin: 05/09/24 03:49 Dose: 1,000 mg Documented By: ALICE Apixaban (Apixaban 5 Mg Tablet) 5 mg PO BID [facility] Stop: 06/07/24 20:59 Last Admin: 05/09/24 07:49 Dose: 5 mg Documented By: Admin: 05/08/24 21:21 Dose: 5 mg Documented By: BALA Atorvastatin Calcium (Atorvastatin 20 Mg Tab) 20 mg PO QPM [facility] Stop: 06/07/24 20:59 Last Admin: 05/08/24 21:21 Dose: 20 mg Documented By: BALA Bumetanide (Bumetanide 1 Mg Tab) 2 mg PO QAM [facility] Stop: 06/08/24 08:59 Last Admin: 05/09/24 07:51 Dose: 2 mg Documented By: CHRISTA Calcium Carbonate (Calcium Carbonate 500 Mg Chewable Tab) 400 mg PO BID [facility] Stop: 06/07/24 20:59 Last Admin: 05/09/24 07:49 Dose: 400 mg Documented By: Admin: 05/08/24 21:21 Dose: 400 mg Documented By: BALA Duloxetine HCl (Duloxetine Hcl 20 Mg Cap) 20 mg PO HS [facility] Stop: 06/07/24 20:59 Last Admin: 05/08/24 21:20 Dose: 20 mg Documented By: BALA Guaifenesin (Guaifenesin 600 Mg Tabcr) 1,200 mg PO Q12 [facility] Stop: 06/07/24 21:09 Last Admin: 05/09/24 07:51 Dose: 1,200 mg Documented By: Admin: 05/08/24 21:26 Dose: 1,200 mg Documented By: BALA Doxycycline Hyclate 100 mg/ (Dextrose) 100 mls @ 50 mls/hr IV Q12H [facility]; Protocol Stop: 05/15/24 08:59 Last Infusion: 05/09/24 08:12 Dose: Infused Documented By: Admin: 05/09/24 05:49 Dose: 50 mls/hr Documented By: BALA Insulin Aspart (Insulin Aspart Per Unit Charge) 0 units SC ACHS [facility] Stop: 06/07/24 20:59 Last Admin: 05/09/24 07:55 Dose: 2 units Documented By: CHRISTA Co-signed By: ALEXX Admin: 05/08/24 21:29 Dose: Not Given Documented By: BALA Co-signed By: ALICE Insulin Glargine (Lantus Per Unit Charge) 10 units SC QPM [facility] Stop: 06/07/24 20:59 Last Admin: 05/08/24 21:28 Dose: 10 units Documented By: BALA Co-signed By: ALICE Magnesium Oxide (Magnesium Oxide 400 Mg Tab) 400 mg PO BID [facility] Stop: 06/07/24 20:59 Last Admin: 05/09/24 07:50 Dose: 400 mg Documented By: Admin: 05/08/24 21:20 Dose: 400 mg Documented By: BALA Miscellaneous (Tacrolimus 1 Mg Capsule,Extended Release 24hr- Order Awaiting Action) 1 each N/A QS [facility] Stop: 06/07/24 20:14 Last Admin: 05/09/24 07:51 Dose: Not Given Documented By: Admin: 05/09/24 02:01 Dose: Not Given Documented By: Admin: 05/08/24 21:22 Dose: Not Given Documented By: BALA Multivitamins/Minerals (Cerovite Adv Formula Tab) 1 tab PO DAILY [facility] Stop: 06/08/24 08:59 Last Admin: 05/09/24 07:49 Dose: 1 tab Documented By: CHRISTA Mycophenolate Mofetil (Mycophenolate Mofetil 250 Mg Cap) 750 mg PO BID [facility] Stop: 06/07/24 20:59 Last Admin: 05/09/24 07:50 Dose: 750 mg Documented By: Admin: 05/08/24 21:21 Dose: 750 mg Documented By: BALA Pregabalin (Pregabalin 50 Mg Cap) 50 mg PO BID [facility] Stop: 06/07/24 20:59 Last Admin: 05/09/24 07:50 Dose: 50 mg Documented By: Admin: 05/08/24 21:28 Dose: 50 mg Documented By: BALA Pregabalin (Pregabalin 50 Mg Cap) 50 mg PO HS [facility] Stop: 06/07/24 20:59 Last Admin: 05/08/24 21:25 Dose: 50 mg Documented By: BALA Discontinued Medications Ceftriaxone Sodium (Rocephin) 2,000 mg in 50 mls @ 100 mls/hr IV NOW STA Stop: 05/08/24 16:13 Last Infusion: 05/08/24 16:57 Dose: Infused Documented By: JO-ANN Admin: 05/08/24 16:27 Dose: 100 mls/hr Documented By: Doxycycline Hyclate 100 mg/ (Dextrose) 100 mls @ 50 mls/hr IV NOW STA Stop: 05/08/24 18:45 Last Infusion: 05/08/24 19:30 Dose: Infused Documented By: Admin: 05/08/24 17:08 Dose: 50 mls/hr Documented By: JO-ANN Imaging Data Radiologist's Impression: Chest X-Ray 05/08/24 14:03 SINGLE VIEW CHEST CLINICAL HISTORY: Hemoptysis FINDINGS: An AP, portable, upright chest radiograph is compared to study dated 04/29/2011 and correlated with abdominal CT dated 04/21/2024. The heart is enlarged and noting atherosclerotic calcification of the thoracic aorta. There is pulmonary vascular congestion. Airspace consolidation is seen at the right lung base. Mild opacities are also seen at the left lung base. No large pleural effusion or Pneumothorax is seen. The skeletal structures are osteopenic. The bony thorax is grossly intact. IMPRESSION: 1. Cardiomegaly with pulmonary vascular congestion. 2. Airspace consolidation at the right lung base is typical for pneumonia/aspiration pneumonitis. Clinical correlation will be required and radiographic follow-up to resolution is recommended. 3. Mild nonspecific opacities are also seen at the left lung base. ACT 112: Negative or not required by law. Electronically signed by: Eugenio Alonso M.D. 05/08/2024 2:57 PM Discharge Plan Visit Data Chief Complaint: Cough Stated Complaint: COUGH, COUGHING UP BLOOD, SOME SOB ED Provider: Dawna Valderrama Discharge Problem: Hypoxia, Bronchopneumonia due to human metapneumovirus (hMPV), Hemoptysis Patient Disposition: Admitted As Inpatient Discharge Instructions Interventions: ED Discharge Assessment Last Done: 05/08/24 20:44
[2024-05-08 15:08] LABS: Troponin I High Sensitivity 29.5 pg/ml (0-14)
[2024-05-08 15:16] LABS: Influenza A virus by PCR Negative (Neg); Influenza B virus by PCR Negative (Neg); RSV by PCR Negative (Neg); SARS CoV2 RNA(COVID-19) Ceph NEGATIVE (Negative)
[2024-05-08 15:17] LABS: D Dimer 400 ug/L FEU (0-500)
[2024-05-08] MEDS: cefTRIAXone SODIUM 2,000 MG/50 ML BAG IV STA (16:27)
[2024-05-08] MEDS: DOXYCYCLINE HYCLATE 100 MG in DEXTROSE 5% MINI-B 100 ML IV STA (17:08)
--- NOTE | 2024-05-08 17:10 | History & Physical Report ---
Date of Service May 08, 2024 Assessment & Plan (1) Community acquired pneumonia: Plan: Ceftriaxone + doxycycline - negative WBC or procalcitonin but CXR changes and immunosuppressed Biofire PCR positive for human metapneumovirus (contact precautions ordered) (2) Hypoxia: Plan: Secondary to pneumonia as above Aim O2 sats > 90% (3) Post-nasal drip: Plan: Flonase BID PRN Suspected reason with allergies for her more chronic cough Can trial albuterol PRN Dextromethorphan PRN (4) Type 2 diabetes mellitus: Plan: Hemoglobin A1C 6.0 in December, repeat with AM labs Reduce basal insulin to 10 units due to likely reduced cabrohydrates with hospital food Novolog: --Goal BSG Range: Low 110 mg/dL, High 140 mg/dL --Correction Factor: 45 mg/dL/unit --Carbohydrate ratio = 15 g/unit --BSGs ACHS if eating, q6h if npo (5) Permanent atrial fibrillation: Plan: Anticoagulation with Eliquis Rate controlled without medications (6) History of kidney transplant: Plan: Tacrolimus and mycophenolate levels with AM labs, continue these Consult nephrology Plan VTE Prophylaxis - Eliquis Diet - T2DM Disposition - admit to med/surg Admission and Anticipated Discharge Date Admission Date: May 08, 2024 History of Present Illness Chief Complaint: Cough, shortness of breath Primary Care Provider: Marcus Jaramillo MD Erin Sanchez is a 68 year old female with a renal transplant who presents to the ER with a cough and shortness of breath. She reports the her cough started first in January and she was diagnosed with a sinus infection and improved on cephalexin but never fully resolved. She thinks she has seasonal allergies with ongoing post nasal drip around this time of year but the ongoing cough is unusual for her. Unsure how much more short of breath she is than usual but possible more fatigued over the last week. No chest pain, nausea, vomiting, abdominal pain, fever, chills, change in urine. Main reason for coming in today is she noticed small amounts of blood in her cough. She takes Eliquis for history of blood clots and permanent atrial fibrillation. Allergies Allergy/AdvReac Type Severity Reaction Status Date / Time erythromycin base AdvReac Severe "would Verified 05/08/24 16:30 interact overtime with my transplant meds" Home Medications Medication Instructions Recorded Confirmed Type calcium carbonate 400 mg PO BID 06/09/19 05/08/24 History cinnamon bark 500 mg capsule 500 mg PO BID 06/09/19 05/08/24 History cranberry 400 mg capsule 400 mg PO BID 06/09/19 05/08/24 History magnesium oxide 400 mg (241.3 mg 400 mg PO BID #120 tabs 06/09/19 05/08/24 History magnesium) tablet multivitamin (Daily Multi-Vitamin 1 tab PO QAM 06/09/19 05/08/24 History tablet) tacrolimus 1 mg capsule,extended 2 mg PO QAM 06/24/19 05/08/24 History release 24 hr lancets 26 gauge (ReliOn Thin #100 ea 07/12/19 03/15/24 History Lancets) BD Ultra-Fine [place] Pen Needle 32 #100 ea 02/29/20 03/15/24 Rx gauge x 5/32" (pen needle, diabetic) diabetic shoes #1 ea 07/30/21 03/15/24 Rx mycophenolate mofetil 250 mg 750 mg PO BID 09/05/22 05/08/24 History capsule metformin 500 mg tablet 1,000 mg (2 x 500 mg) PO BID #360 07/07/23 05/08/24 Rx tabs potassium citrate 99 mg capsule 198 mg PO BID 09/15/23 05/08/24 History biotin 1,000 mcg chewable tablet 1,000 mcg PO QPM PRN Unknown 10/08/23 05/08/24 History blood sugar diagnostic (OneTouch #100 ea 10/08/23 03/15/24 Rx Ultra Test strips) vitamins A,C,R-oiyx-ctxvxy 2,148 1 tab PO BID 10/08/23 05/08/24 History mcg-113 mg-45 mg-17.4 mg tablet (PreserVision AREDS) apixaban 5 mg tablet (Eliquis) 5 mg PO BID #180 tabs 01/09/24 05/08/24 Rx atorvastatin 20 mg tablet 20 mg PO QPM #90 tabs 01/16/24 05/08/24 Rx bumetanide 2 mg tablet 2 mg PO QAM #90 tabs 01/16/24 05/08/24 Rx semaglutide 0.25 mg or 0.5 mg (2 0.5 mg (0.736 mL) subcut Q7D 90 02/05/24 05/08/24 Rx mg/3 mL) subcutaneous pen injector days #9 mL insulin glargine 100 unit/mL (3 20 unit subcut QPM 03/15/24 05/08/24 History mL) subcutaneous pen (Lantus Solostar U-100 Insulin) duloxetine 20 mg capsule,delayed 20 mg PO HS 05/08/24 05/08/24 History release (Cymbalta) pregabalin 50 mg capsule (Lyrica) 50 mg PO UD 05/08/24 05/08/24 History Past Med/Surg History Problem List (Updated 05/09/24 @ 06:28 by Saji Sandoval MD) Post-nasal drip Hypoxia Community acquired pneumonia Hydronephrosis Sensory ataxia Albuminuria Obesity (BMI 30.0-34.9) Bradycardia Hypotension Osteoarthritis of hand Neuropathy Vitamin D deficiency Diverticula of colon (Chronic) Kidney transplanted (Chronic) History of kidney transplant (Chronic) Arthritis (Acute) Cardiomyopathy (Acute) Diabetic peripheral neuropathy (Chronic) End stage renal disease (Acute) had transplant currently doing well Gastroesophageal reflux disease (Chronic) Hypercholesterolemia (Chronic) Hypertension (Chronic) Mass of pelvis (Acute) Obesity (Acute) On anticoagulant therapy (Acute) eliquis Osteopenia (Acute) Other complication of arteriovenous dialysis fistula (Acute) Permanent atrial fibrillation (Chronic) follows with Dr. Naidu--on eliquis and metoprolol Post herpetic neuralgia (Acute) Tubular adenoma of colon (Acute) Venous insufficiency (Acute) Dyslipidemia Diabetes mellitus Frequent PVCs Dizziness Loss of protective sensation of skin of foot Pre-ulcerative calluses Type 2 diabetes mellitus Urine frequency Cystitis Diabetes mellitus type II, controlled (Chronic) Conjunctivitis, left eye Abnormal mammogram Bifascicular bundle branch block History of colon polyps Acute lower GI bleeding (Acute) Anticoagulated (Acute) Colonoscopy causing post-procedural bleeding Anemia Anticoagulant long-term use Tubulovillous adenoma polyp of colon Type 2 diabetes mellitus, uncontrolled Medical History Vitamin D deficiency LGI bleed Colonoscopy causing post-procedural bleeding Inferior vena cava interruption UTI (urinary tract infection) Thrombophlebitis of deep vein of lower leg History of blood clots Venous insufficiency Tubular adenoma of colon Post herpetic neuralgia Permanent atrial fibrillation Other complication of arteriovenous dialysis fistula Osteopenia On anticoagulant therapy Obesity Mass of pelvis Hypertension Hypercholesterolemia Gastroesophageal reflux disease End stage renal disease Diabetic peripheral neuropathy Cardiomyopathy Arthritis Anemia Surgical History History of esophagogastroduodenoscopy (EGD) S/P arteriovenous (AV) fistula creation History of colonoscopy with polypectomy History of colostomy (~07/1999) History of colostomy reversal (~04/2000) History of wisdom tooth extraction History of sinus surgery History of left cataract extraction History of cardiac radiofrequency ablation (RFA) S/P dilatation and curettage S/P cholecystectomy (~2006) Kidney replaced by transplant S/P appendectomy S/P hysterectomy S/P tooth extraction Family History Mother Diverticula of colon Father Myocardial infarction Thrombophlebitis Grandfather (Maternal) Myocardial infarction Brother Family hx colonic polyps Other No family history of adverse response to anesthesia Social History Smoking Status: Former smoker Tobacco Type: Cigarettes Second Hand Exposure: No; Do You Dip or Chew Tobacco: No; Tobacco Cessation Education Requested by Patient: No Hx Alcohol Use: Yes Alcohol type: wine Hx Substance Use: No Preferred Language: Bengali Communication Ability: Effective 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 Operator 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: No Beliefs That Will Affect Care: None marital status: Single Current Living Situation: Alone Feels Safe at Home: Yes Safety Concerns: Feels Safe At This Time Assistive Devices: None Review of Systems Review of Systems: All systems reviewed & are unremarkable except as noted in HPI & below Physical Exam Constitutional: WD/WN, vitals as above ENMT: external ear and nose normal, oropharynx normal Respiratory: normal respiratory effort; no respiratory distress Auscultation: + crackles (bibasal); breath sounds present, no diminished lung sounds, no rales, no rhonchi and no wheezes Cardiovascular: Rate/Rhythm: regular rate and + irregularly irregular Heart Sounds: no murmur Gastrointestinal (Abdomen): normal bowel sounds, soft, nontender, no hepatosplenomegaly Skin: no rashes, warm and dry Neurologic: moves all extremities and awake; not confused Psychiatric: A+Ox3, euthymic affect Results & Data Results & Data Vital Signs (Past 12 Hours) Vital Signs Temp Pulse Pulse Resp BP BP Pulse Ox 05/08/24 15:13 53 L 05/08/24 15:05 94 05/08/24 14:54 55 L 20 116/65 86 L 05/08/24 13:58 36.8 C 52 L 18 175/67 H 95 O2 Del Method O2 Flow Rate 05/08/24 15:13 05/08/24 15:05 Nasal Cannula 2 05/08/24 14:54 Room Air 05/08/24 13:58 Laboratory Results Abnormal lab results 05/08/24 05/08/24 Range/Units 14:20 16:09 WBC 3.21 L (4.8-10.8) K/ul Hgb 11.6 L (12.0-16.0) g/dl Hct 36.9 L (37.0-47.0) % MCHC 31.4 L (32.0-36.0) g/dL RDW Std Deviation 49.0 H (36.4-46.3) fL RDW Coeff of Tommy 16.5 H (11.5-14.5) % Plt Count 121 L (130-400) K/uL Lymph # (Auto) 0.82 L (1.20-3.40) K/uL Anion Gap 12 H (3-11) Glucose 132 H (70-99(Fasting)) mg/dl Troponin I High Sens 29.5 H 33.8 H (0-14) pg/ml B-Natriuretic Peptide 223 H (0-100) pg/ml Globulin 2.3 L (2.5-4.0) gm/dl Diagnostic Findings SINGLE VIEW CHEST CLINICAL HISTORY: Hemoptysis FINDINGS: An AP, portable, upright chest radiograph is compared to study dated 04/29/2011 and correlated with abdominal CT dated 04/21/2024. The heart is enlarged and noting atherosclerotic calcification of the thoracic aorta. There is pulmonary vascular congestion. Airspace consolidation is seen at the right lung base. Mild opacities are also seen at the left lung base. No large pleural effusion or Pneumothorax is seen. The skeletal structures are osteopenic. The bony thorax is grossly intact. IMPRESSION: 1. Cardiomegaly with pulmonary vascular congestion. 2. Airspace consolidation at the right lung base is typical for pneumonia/aspiration pneumonitis. Clinical correlation will be required and radiographic follow-up to resolution is recommended. 3. Mild nonspecific opacities are also seen at the left lung base. Medications Administered ER Medications Given: Ceftriaxone 2000mg IV ECG Rate (beats per minute): 73 Rhythm: atrial fibrillation Findings: + LAFB and + RBBB Comparison ECG Date: from (March 15, 2024) Change: no significant change Code Status & VTE Plan Code Status Full VTE Prophylaxis Plan VTE Prophylaxis will be ordered: Yes PG Care Time/CCT Total # of Minutes Spent Total Time Spent with Patient: Total time spent is greater than 50% in coordination of care (as documented) at patient's floor/unit and/or counseling patient: Coding Level of Care Code 26161 INT INP/OBS CARE 2/55MIN Diagnoses Community acquired pneumonia J18.9 Hypoxia R09.02 Post-nasal drip R09.82 Type 2 diabetes mellitus E11.9 Permanent atrial fibrillation I48.2 History of kidney transplant Z94.0
[2024-05-08 17:31] LABS: Adenovirus PCR Not Detected (NotDetected); Bordetella parapertussis PCR Not Detected (NotDetected); Bordetella pertussis PCR Not Detected (NotDetected); Chlamydia pneumoniae PCR Not Detected (NotDetected); Coronavirus 229E PCR Not Detected (NotDetected); Coronavirus CoV-2 (COVID19)PCR Not Detected (NotDetected); Coronavirus HKU1 PCR Not Detected (NotDetected); Coronavirus NL63 PCR Not Detected (NotDetected); Coronavirus OC43PCR Not Detected (NotDetected); Human Metapneumovirus PCR DETECTED (NotDetected); Influenza A PCR Not Detected (NotDetected); Influenza B PCR Not Detected (NotDetected); Mycoplasma pneumoniae PCR Not Detected (NotDetected); Parainfluenza Virus 1 PCR Not Detected (NotDetected); Parainfluenza Virus 2 PCR Not Detected (NotDetected); Parainfluenza Virus 3 PCR Not Detected (NotDetected); Parainfluenza Virus 4 PCR Not Detected (NotDetected); Respiratory Syncytial VirusPCR Not Detected (NotDetected); Rhinovirus/Enterovirus PCR Not Detected (NotDetected)
[2024-05-08] MEDS ORDERED: GLUCOSE 40% GEL 15 GM TUBE PO PRN (20:02)
[2024-05-08] MEDS ORDERED: CARBOHYDRATES FOR HYPOGLYCEMIA PO PRN (20:02)
[2024-05-08] MEDS ORDERED: GLUCOSE 10 TAB/TUBE PO PRN (20:02)
[2024-05-08] MEDS ORDERED: DEXTROSE 50% 50 ML SYRINGE IV PRN (20:02)
[2024-05-08] MEDS ORDERED: GLUCAGON FOR INJ 1 MG VIAL SQ PRN (20:02)
[2024-05-08] MEDS ORDERED: ALBUTEROL HFA 8 GM INHALER INH PRN (21:05)
[2024-05-08] MEDS ORDERED: FLUTICASONE PROPIONATE NA SPR 16 GM BTL NAE PRN (21:06)
[2024-05-08] MEDS ORDERED: DEXTROMETHORPHAN POLYMR COMPLX 30 MG/5 ML UDP PO PRN (21:06)
[2024-05-08] MEDS: DULoxetine HCL 20 MG CAP PO SCH (21:20)
[2024-05-08] MEDS: MAGNESIUM OXIDE 400 MG TAB PO SCH (21:20)
[2024-05-08] MEDS: ATORVASTATIN 20 MG TAB PO SCH (21:21)
[2024-05-08] MEDS: APIXABAN 5 MG TABLET PO SCH (21:21)
[2024-05-08] MEDS: MYCOPHENOLATE MOFETIL 250 MG CAP PO SCH (21:21)
[2024-05-08] MEDS: CALCIUM CARBONATE 500 MG CHEWABLE TAB PO SCH (21:21)
[2024-05-08] MEDS: PREGABALIN 50 MG CAP PO SCH ×2 (21:25→21:28)
[2024-05-08] MEDS: guaiFENesin 600 MG TABCR PO SCH (21:26)
[2024-05-08] MEDS: LANTUS PER UNIT CHARGE SC SCH (21:28)
[2024-05-08] MEDS: INSULIN ASPART PER UNIT CHARGE SC SCH (21:29)
[2024-05-09] MEDS: ACETAMINOPHEN 500 MG TAB PO PRN (03:49)
[2024-05-09] MEDS: DOXYCYCLINE HYCLATE 100 MG in DEXTROSE 5% MINI-B 100 ML IV SCH (05:49)
[2024-05-09 06:29] LABS: Basophils # (auto) 0.01 K/uL (0.00-0.20); Basophils % (auto) 0.4 %; Eosinophils # (auto) 0.06 K/uL (0.00-0.50); Eosinophils % (auto) 2.3 %; Hemoglobin 10.4 g/dl (12.0-16.0); Immature Granulocytes # (auto) 0.02 K/uL (0.01-0.20); Immature Granulocytes % (auto) 0.8 %; Lymphocytes # (auto) 0.71 K/uL (1.20-3.40); Lymphocytes % (auto) 27.3 %; Mean Corpuscular Hemoglobin 26.1 pg (25.0-34.0); Mean Corpuscular Hgb Conc 31.5 g/dL (32.0-36.0); Mean Corpuscular Volume 82.7 fL (80.0-100.0); Mean Platelet Volume 10.4 fL (9.4-12.4); Monocytes # (auto) 0.29 K/uL (0.11-0.59); Monocytes % (auto) 11.2 %; Neutrophils # (auto) 1.51 K/uL (1.40-6.50); Platelet Count 115 K/uL (130-400); RDW Standard Deviation 48.7 fL (36.4-46.3); Red Blood Count 3.99 M/uL (4.20-5.40)
[2024-05-09 06:38] LABS: BUN Creatinine Ratio 17.5 (10-20); Calcium 8.2 mg/dl (8.6-10.3); Creatinine Clr Calc Pharmacy 61.7 ml/min; Est GFR (African American) 69.6 ml/min; Potassium 3.5 mmol/L (3.5-5.1)
[2024-05-09 07:49] LABS: Estimated Average Glucose 146 mg/dl; Hemoglobin A1C 6.7 % (4.5-5.6)
[2024-05-09] MEDS: CEROVITE ADV FORMULA TAB PO SCH (07:49)
[2024-05-09] MEDS: BUMETANIDE 1 MG TAB PO SCH (07:51)
--- NOTE | 2024-05-09 11:11 | Nephrology Consultation ---
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 Patient underwent bilateral [place] nephrectomy and DDRT x 2. Last kidney transplant was September 2001 at [facility]. Allograft is located in the left lower quadrant of the abdomen. Post transplant creatinine has stabilized at 1.1. Current immunosuppressive regimen consists of tacrolimus 1 mg 2 tablets each morning and MMF 750 mg twice daily * Kidney function is stable at this time. Volume status and electrolyte balance remain acceptable * Continue current immunosuppressive regimen (2) Pneumonia: * Right lower lobe pneumonia. Patient tested positive for human metapneumovirus * Continue supportive care * If WBC count drops further, may need to reduce/hold MMF (3) Atrial fibrillation: * History of atrial fibrillation. Regular heart rhythm on physical exam today. Pulse 63 * On apixaban therapy History of Present Illness Reason for Consultation: DDRT Attending Physician: Vandana Garcia MD History of Present Illness Miss Sanchez is a 68-year-old white female who is seen at the request of the [facility] hospitalist service for evaluation of DDRT. Information for the HPI is obtained from direct patient interview and review of the EMR. 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 She required initiation of hemodialysis September 1986. In anticipation of transplantation she underwent bilateral [place] nephrectomies 1986. Miss Sanchez was on dialysis for 2 years and then received her first donor renal transplant May 1988. Unfortunately in 1998 the transplant allograft failed and she returned to hemodialysis. She received her second donor renal transplant September 2001. This was placed in the left lower quadrant of the abdomen. Post transplant creatinine has remained stable at 1.1. Her current immunosuppressive regimen consists of tacrolimus 1 mg 2 tablets each morning and mycophenolate 750 mg twice daily. 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 She reports that for the last 2 months she has suffered an intermittent cough. This is progressively worsened to the point that yesterday she was coughing up bloody sputum. She presented to the emergency department where she was found to have a room air O2 sat of 97%. Chest x-ray however respiratory bio fire was positive for human metapneumovirus. 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 Never . No children. Remote history of tobacco use. Allergies Allergy/AdvReac Type Severity Reaction Status Date / Time erythromycin base AdvReac Severe "would Verified 05/08/24 16:30 interact overtime with my transplant meds" Home Medications Medication Instructions Recorded Confirmed Type calcium carbonate 400 mg PO BID 06/09/19 05/08/24 History cinnamon bark 500 mg capsule 500 mg PO BID 06/09/19 05/08/24 History cranberry 400 mg capsule 400 mg PO BID 06/09/19 05/08/24 History magnesium oxide 400 mg (241.3 mg 400 mg PO BID #120 tabs 06/09/19 05/08/24 History magnesium) tablet multivitamin (Daily Multi-Vitamin 1 tab PO QAM 06/09/19 05/08/24 History tablet) tacrolimus 1 mg capsule,extended 2 mg PO QAM 06/24/19 05/08/24 History release 24 hr lancets 26 gauge (ReliOn Thin #100 ea 07/12/19 03/15/24 History Lancets) BD Ultra-Fine [place] Pen Needle 32 #100 ea 02/29/20 03/15/24 Rx gauge x 5/32" (pen needle, diabetic) diabetic shoes #1 ea 07/30/21 03/15/24 Rx mycophenolate mofetil 250 mg 750 mg PO BID 09/05/22 05/08/24 History capsule metformin 500 mg tablet 1,000 mg (2 x 500 mg) PO BID #360 07/07/23 05/08/24 Rx tabs potassium citrate 99 mg capsule 198 mg PO BID 09/15/23 05/08/24 History biotin 1,000 mcg chewable tablet 1,000 mcg PO QPM PRN Unknown 10/08/23 05/08/24 History blood sugar diagnostic (OneTouch #100 ea 10/08/23 03/15/24 Rx Ultra Test strips) vitamins A,C,B-odme-mrxmin 2,148 1 tab PO BID 10/08/23 05/08/24 History mcg-113 mg-45 mg-17.4 mg tablet (PreserVision AREDS) apixaban 5 mg tablet (Eliquis) 5 mg PO BID #180 tabs 01/09/24 05/08/24 Rx atorvastatin 20 mg tablet 20 mg PO QPM #90 tabs 01/16/24 05/08/24 Rx bumetanide 2 mg tablet 2 mg PO QAM #90 tabs 01/16/24 05/08/24 Rx semaglutide 0.25 mg or 0.5 mg (2 0.5 mg (0.736 mL) subcut Q7D 90 02/05/24 05/08/24 Rx mg/3 mL) subcutaneous pen injector days #9 mL insulin glargine 100 unit/mL (3 20 unit subcut QPM 03/15/24 05/08/24 History mL) subcutaneous pen (Lantus Solostar U-100 Insulin) duloxetine 20 mg capsule,delayed 20 mg PO HS 05/08/24 05/08/24 History release (Cymbalta) pregabalin 50 mg capsule (Lyrica) 50 mg PO UD 05/08/24 05/08/24 History Patient History Medical History LGI bleed Inferior vena cava interruption UTI (urinary tract infection) Thrombophlebitis of deep vein of lower leg History of blood clots Anemia Surgical History History of esophagogastroduodenoscopy (EGD) S/P arteriovenous (AV) fistula creation x2 History of colonoscopy with polypectomy History of colostomy (~07/1999) 6 inches removed d/t diverticulitis @ [facility] History of colostomy reversal (~04/2000) @ [place] History of wisdom tooth extraction History of sinus surgery History of left cataract extraction History of cardiac radiofrequency ablation (RFA) S/P dilatation and curettage S/P cholecystectomy (~2006) Kidney replaced by transplant x2[place] [facility] [place] [facility] [place] S/P appendectomy S/P hysterectomy S/P tooth extraction Family History Mother Diverticula of colon Father Myocardial infarction Thrombophlebitis Grandfather (Maternal) Myocardial infarction Brother Family hx colonic polyps Other No family history of adverse response to anesthesia Social History Smoking Status: Former smoker Tobacco Type: Cigarettes Second Hand Exposure: No; Do You Dip or Chew Tobacco: No; Tobacco Cessation Education Requested by Patient: No Hx Alcohol Use: Yes Alcohol type: wine Hx Substance Use: No Preferred Language: Bhutanese Communication Ability: Effective 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 Worker Required: No Beliefs That Will Affect Care: None marital status: Single Current Living Situation: Alone Feels Safe at Home: Yes Safety Concerns: Feels Safe At This Time Assistive Devices: None Review of Systems Constitutional: no fever Eyes: no problem reported Ear, Nose, Mouth, Throat: no problem reported Respiratory: + cough and + change in sputum (bloody s putum) Cardiovascular: no problem reported Gastrointestinal: no abdominal pain, no nausea, no vomiting and no diarrhea/loose stools Genitourinary: no dysuria and no hematuria No pain overlying transplant allograft Integumentary: no problem reported Neurologic: no problem reported Physical Exam Constitutional: not in distress Eyes: PERRL, conjunctivae normal, anicteric sclerae ENMT: external ear and nose normal, oropharynx normal Neck: trachea midline, no thyromegaly Respiratory: normal respiratory effort, lungs clear to auscultation Cardiovascular: RRR, no murmur, no edema L RC and BC AVF thrombosed Gastrointestinal (Abdomen): normal bowel sounds, soft, nontender, no hepatosplenomegaly no tenderness overlying the left lower quadrant renal allograft Skin: no rashes, warm and dry Neurologic: Speech / Cognition: normal speech and normal cognition Psychiatric: Affect: euthymic affect Results & Data Vital Signs (Past 12 Hours) Vital Signs Temp Pulse Resp BP Pulse Ox O2 Del Method 05/09/24 08:30 Room Air 05/09/24 07:23 36.6 C 63 18 117/78 97 Room Air Laboratory Results Laboratory Results WBC 2.60 K/ul (4.8-10.8) L 05/09/24 05:58 RBC 3.99 M/uL (4.20-5.40) L 05/09/24 05:58 Hgb 10.4 g/dl (12.0-16.0) L 05/09/24 05:58 Hct 33.0 % (37.0-47.0) L 05/09/24 05:58 MCV 82.7 fL (80.0-100.0) 05/09/24 05:58 MCH 26.1 pg (25.0-34.0) 05/09/24 05:58 MCHC 31.5 g/dL (32.0-36.0) L 05/09/24 05:58 RDW Std Deviation 48.7 fL (36.4-46.3) H 05/09/24 05:58 RDW Coeff of Tommy 16.0 % (11.5-14.5) H 05/09/24 05:58 Plt Count 115 K/uL (130-400) L 05/09/24 05:58 MPV 10.4 fL (9.4-12.4) 05/09/24 05:58 Immature Gran % (Auto) 0.8 % 05/09/24 05:58 Neut % (Auto) 58.0 % 05/09/24 05:58 Lymph % (Auto) 27.3 % 05/09/24 05:58 [place] % (Auto) 11.2 % 05/09/24 05:58 Eos % (Auto) 2.3 % 05/09/24 05:58 Baso % (Auto) 0.4 % 05/09/24 05:58 Neut # (Auto) 1.51 K/uL (1.40-6.50) 05/09/24 05:58 Lymph # (Auto) 0.71 K/uL (1.20-3.40) L 05/09/24 05:58 [place] # (Auto) 0.29 K/uL (0.11-0.59) 05/09/24 05:58 Eos # (Auto) 0.06 K/uL (0.00-0.50) 05/09/24 05:58 Baso # (Auto) 0.01 K/uL (0.00-0.20) 05/09/24 05:58 Immature Gran # (Auto) 0.02 K/uL (0.01-0.20) 05/09/24 05:58 D-Dimer 400 ug/L FEU (0-500) 05/08/24 14:20 Sodium 138 mmol/L (136-145) 05/09/24 05:58 Potassium 3.5 mmol/L (3.5-5.1) 05/09/24 05:58 Chloride 101 mmol/L (98-107) 05/09/24 05:58 Carbon Dioxide 28 mmol/L (21-32) 05/09/24 05:58 Anion Gap 9 (3-11) 05/09/24 05:58 BUN 17 mg/dl (6-23) 05/09/24 05:58 Creatinine 0.97 mg/dl (0.6-1.2) 05/09/24 05:58 Est Cr Clr Drug Dosing 61.7 ml/min 05/09/24 05:58 Est GFR ( Amer) 69.6 ml/min 05/09/24 05:58 Est GFR (Non-Af Amer) 60.0 ml/min 05/09/24 05:58 BUN/Creatinine Ratio 17.5 (10-20) 05/09/24 05:58 Glucose 114 mg/dl (70-99(Fasting)) H 05/09/24 05:58 POC Glucose 98 mg/dl (70-99) 05/09/24 07:19 Estimat Average Glucose 146 mg/dl 05/09/24 05:58 Hemoglobin A1c 6.7 % (4.5-5.6) H 05/09/24 05:58 Lactate 2.0 mmol/L (0.4-2.0) 05/08/24 15:42 Calcium 8.2 mg/dl (8.6-10.3) L 05/09/24 05:58 Total Bilirubin 0.8 mg/dl (0.2-1.0) 05/08/24 14:20 AST 23 U/L (13-39) 05/08/24 14:20 ALT 11 U/L (7-52) 05/08/24 14:20 Alkaline Phosphatase 56 U/L (34-104) 05/08/24 14:20 Troponin I High Sens 33.8 pg/ml (0-14) H 05/08/24 16:09 B-Natriuretic Peptide 223 pg/ml (0-100) H 05/08/24 14:20 Total Protein 6.5 gm/dl (6.0-8.3) 05/08/24 14:20 Albumin 4.2 gm/dl (3.4-5.0) 05/08/24 14:20 Globulin 2.3 gm/dl (2.5-4.0) L 05/08/24 14:20 Albumin/Globulin Ratio 1.8 (0.9-2) 05/08/24 14:20 Procalcitonin 0.03 ng/ml (0-0.5) 05/08/24 14:20 Adenovirus (PCR) Not Detected (NotDetected) 05/08/24 14:25 B. pertussis DNA (PCR) Not Detected (NotDetected) 05/08/24 14:25 B.parapertussis DNA PCR Not Detected (NotDetected) 05/08/24 14:25 C. pneumoniae DNA (PCR) Not Detected (NotDetected) 05/08/24 14:25 Coronavirus OC43 (PCR) Not Detected (NotDetected) 05/08/24 14:25 Coronavirus HKU1 (PCR) Not Detected (NotDetected) 05/08/24 14:25 Coronavirus 229E (PCR) Not Detected (NotDetected) 05/08/24 14:25 SARS-CoV-2 (PCR) NEGATIVE (Negative) 05/08/24 14:25 SARS-CoV-2 (PCR) Not Detected (NotDetected) 05/08/24 14:25 Coronavirus NL63 (PCR) Not Detected (NotDetected) 05/08/24 14:25 Human Metapneumovir PCR DETECTED (NotDetected) A 05/08/24 14:25 Influenza Type A (PCR) Negative (Neg) 05/08/24 14:25 Influenza Type A (PCR) Not Detected (NotDetected) 05/08/24 14:25 Influenza Type B (PCR) Negative (Neg) 05/08/24 14:25 Influenza Type B (PCR) Not Detected (NotDetected) 05/08/24 14:25 M. pneumoniae (PCR) Not Detected (NotDetected) 05/08/24 14:25 Parainfluenza 1 (PCR) Not Detected (NotDetected) 05/08/24 14:25 Parainfluenza 2 (PCR) Not Detected (NotDetected) 05/08/24 14:25 Parainfluenza 3 (PCR) Not Detected (NotDetected) 05/08/24 14:25 Parainfluenza 4 (PCR) Not Detected (NotDetected) 05/08/24 14:25 RSV (RT-PCR) Negative (Neg) 05/08/24 14:25 RSV (PCR) Not Detected (NotDetected) 05/08/24 14:25 Entero/Rhino (PCR) Not Detected (NotDetected) 05/08/24 14:25 Impressions Chest X-Ray 05/08/24 14:03 SINGLE VIEW CHEST CLINICAL HISTORY: Hemoptysis FINDINGS: An AP, portable, upright chest radiograph is compared to study dated 04/29/2011 and correlated with abdominal CT dated 04/21/2024. The heart is enlarged and noting atherosclerotic calcification of the thoracic aorta. There is pulmonary vascular congestion. Airspace consolidation is seen at the right lung base. Mild opacities are also seen at the left lung base. No large pleural effusion or Pneumothorax is seen. The skeletal structures are osteopenic. The bony thorax is grossly intact. IMPRESSION: 1. Cardiomegaly with pulmonary vascular congestion. 2. Airspace consolidation at the right lung base is typical for pneumonia/aspiration pneumonitis. Clinical correlation will be required and radiographic follow-up to resolution is recommended. 3. Mild nonspecific opacities are also seen at the left lung base. ACT 112: Negative or not required by law. Electronically signed by: Eugenio Alonso M.D. 05/08/2024 2:57 PM PG Care Time/CCT Total # of Minutes Spent Total Time Spent with Patient: Total time spent is greater than 50% in coordination of care (as documented) at patient's floor/unit and/or counseling patient: Coding Level of Care Code 05742 IN/OBS CONSULT LVL 5,80M Diagnoses History of kidney transplant Z94.0 Pneumonia J18.9 Atrial fibrillation I48.91
--- NOTE | 2024-05-09 11:38 | Hospitalist Progress Note ---
Date of Service May 09, 2024 Assessment & Plan (1) Community acquired pneumonia: Plan: Admitted to the hospital on account of worsening cough for the past several days BioFire positive for human metapneumovirus Some infiltrates on chest x-ray Blood cultures pending, negative for now Continue empiric ceftriaxone and doxycycline in case there is a superimposed bacterial infection. Upon reexamination today, patient feels clinically better. (2) Hypoxia: Plan: Secondary to pneumonia as above Aim O2 sats > 90% (3) Post-nasal drip: Plan: Flonase BID PRN Suspected reason with allergies for her more chronic cough Can trial albuterol PRN Dextromethorphan PRN (4) Type 2 diabetes mellitus: Plan: Hemoglobin A1C 6.0 in December, repeat with AM labs Reduce basal insulin to 10 units due to likely reduced cabrohydrates with hospital food Novolog: --Goal BSG Range: Low 110 mg/dL, High 140 mg/dL --Correction Factor: 45 mg/dL/unit --Carbohydrate ratio = 15 g/unit --BSGs ACHS if eating, q6h if npo (5) Permanent atrial fibrillation: Plan: Anticoagulation with Eliquis Rate controlled without medications (6) Cardiomyopathy: Plan: Continue home Bumex 2 mg daily Monitor input and output, daily weight (7) History of kidney transplant: Plan: Tacrolimus and mycophenolate levels with AM labs, continue these Renal function stable Appreciate nephrology (8) Atrial fibrillation: Plan VTE Prophylaxis - Eliquis Diet - T2DM Disposition - Continue to monitor in the hospital hopefully discharge in next 24 to 48 hours Admission and Anticipated Discharge Date Admission Date: May 08, 2024 Subjective Patient seen and examined today, feels a lot better, still coughing but denies worsening shortness of breath. Review of Systems Review of Systems: All systems reviewed are negative, apart from the ones contained in the history. Physical Exam Physical Exam: The patient is awake, alert and oriented 3, well developed and well nourished, normocephalic and atraumatic, lying in bed and in no acute distress. HEENT--PERRL, EOMI, mucous membranes and oropharynx mildly dry Neck--supple. No JVD. No bruits. Thyroid normal, trachea midline, no adenopathy. Heart--normal S1 and S2. No murmurs, rubs or gallops. Lungs--clear bilaterally, no respiratory distress, no accessory muscle use. Abdomen--normal bowel sounds and soft. Extremities--no cyanosis or clubbing. No edema. Dermatologic--normal skin turgor, normal color, no abnormal lymph nodes, no rash. Neurologic--cranial nerves II through XII grossly intact. Rheumatologic--normal range of motion. Psychiatric--normal affect. Results & Data Results & Data Vital Signs (Past 12 Hours) Vital Signs Temp Pulse Resp BP Pulse Ox O2 Del Method 05/09/24 08:30 Room Air 05/09/24 07:23 97.9 F 63 18 117/78 97 Room Air PG Care Time/CCT Total # of Minutes Spent Total Time Spent with Patient: Total time spent is greater than 50% in coordination of care (as documented) at patient's floor/unit and/or counseling patient: Coding Level of Care Code 09112 SUB INP/OBS CARE 2/35MIN Diagnoses Community acquired pneumonia J18.9 Hypoxia R09.02 Post-nasal drip R09.82 Type 2 diabetes mellitus E11.9 Permanent atrial fibrillation I48.2 Dilated cardiomyopathy I42.0 Cardiomyopathy type: dilated History of kidney transplant Z94.0 Atrial fibrillation I48.91 Time Spent (min) 35 (6) Cardiomyopathy Cardiomyopathy type: dilated Qualified Code(s): I42.0 - Dilated cardiomyop halima
--- NOTE | 2024-05-09 12:51 | Electrocardiogram Report ---
Test Reason : Blood Pressure : / mmHG Vent. Rate : 073 BPM Atrial Rate : 000 BPM P-R Int : 000 ms QRS Dur : 144 ms QT Int : 478 ms P-R-T Axes : 000 -58 044 degrees QTc Int : 526 ms Atrial fibrillation with premature ventricular or aberrantly conducted complexes Right bundle branch block Left anterior fascicular block Bifascicular block Septal infarct (cited on or before 15-MAR-2024) Abnormal ECG When compared with ECG of 15-MAR-2024 11:29, (unconfirmed) Questionable change in initial forces of Anteroseptal leads QT has lengthened Confirmed by Washington Calle ([id number]) on 05/09/2024 12:51:35 PM Referred By: REFERRED SELF Confirmed By:Washington Calle
[2024-05-09] MEDS: cefTRIAXone SODIUM 2,000 MG/50 ML BAG IV SCH (16:12)
[2024-05-10 07:46] LABS: Hematocrit (blood only) 32.6 % (37.0-47.0); Hemoglobin 10.3 g/dl (12.0-16.0); Mean Corpuscular Hemoglobin 25.9 pg (25.0-34.0); Mean Corpuscular Hgb Conc 31.6 g/dL (32.0-36.0); Mean Corpuscular Volume 82.1 fL (80.0-100.0); Mean Platelet Volume 10.4 fL (9.4-12.4); Platelet Count 144 K/uL (130-400); RDW Coefficient of Variation 15.9 % (11.5-14.5); Red Blood Count 3.97 M/uL (4.20-5.40); White Blood Count 2.66 K/ul (4.8-10.8)
[2024-05-10 08:00] LABS: BUN Creatinine Ratio 18.9 (10-20); Calcium 8.3 mg/dl (8.6-10.3); Creatinine Clr Calc Pharmacy 66.5 ml/min; Est GFR (African American) 76.1 ml/min; Est GFR (Non-African American) 65.7 ml/min; Potassium 3.3 mmol/L (3.5-5.1)
--- NOTE | 2024-05-10 08:46 | Nephrology Progress Note ---
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 Last kidney transplant was September 2001 at [facility]. Allograft is located in the left lower quadrant of the abdomen. Post transplant creatinine has stabilized at 1.1. Current immunosuppressive regimen consists of tacrolimus 1 mg 2 tablets each morning and MMF 750 mg twice daily * Kidney function remains stable at this time. Volume status and electrolyte balance remain acceptable * Continue current immunosuppressive regimen (2) Pneumonia: Plan: * Right lower lobe pneumonia. Patient tested positive for human metapneumovirus * Breathing is subjectively improved this am * WBC # is trending up * If discharge is anticipated, please have patient follow up w/ Dr. Carey in 7-14 days ([phone]) (3) Atrial fibrillation: Plan: * History of atrial fibrillation. Regular heart rhythm on physical exam today. Pulse 63 * On apixaban therapy Admission and Anticipated Discharge Date Admission Date: May 08, 2024 Subjective Miss Sanchez was evaluated in her hospital room this morning. She reports that her breathing is improved. She has had no further bloody sputum. Miss Sanchez has been taken off O2 NC and hopes to return home is her SaO2 remains acceptable. Review of Systems Constitutional: no fever Eyes: no problem reported Ear, Nose, Mouth, Throat: no problem reported Respiratory: + cough and + change in sputum (bloody s putum) Cardiovascular: no problem reported Gastrointestinal: no abdominal pain, no nausea, no vomiting and no diarrhea/loose stools Genitourinary: no dysuria and no hematuria No pain overlying transplant allograft Integumentary: no problem reported Neurologic: no problem reported Physical Exam Constitutional: not in distress Eyes: PERRL, conjunctivae normal, anicteric sclerae ENMT: external ear and nose normal, oropharynx normal Neck: trachea midline, no thyromegaly Respiratory: normal respiratory effort, lungs clear to auscultation Cardiovascular: RRR, no murmur, no edema Gastrointestinal (Abdomen): normal bowel sounds, soft, nontender, no hepatosplenomegaly Skin: no rashes, warm and dry Neurologic: Speech / Cognition: normal speech and normal cognition Psychiatric: Affect: euthymic affect Results & Data Vital Signs (Past 12 Hours) Vital Signs Temp Pulse Resp BP Pulse Ox O2 Del Method O2 Flow Rate 07/15/24 07:47 Nasal Cannula 3 05/10/24 07:45 36.8 C 64 15 156/85 H 99 Nasal Cannula Laboratory Results Laboratory Results - last 24 hr 05/09/24 05/09/24 05/09/24 11:49 16:40 20:35 WBC RBC Hgb Hct MCV MCH MCHC RDW Std Deviation RDW Coeff of Tommy Plt Count MPV Sodium Potassium Chloride Carbon Dioxide Anion Gap BUN Creatinine Est Cr Clr Drug Dosing Est GFR ( Amer) Est GFR (Non-Af Amer) BUN/Creatinine Ratio Glucose POC Glucose 117 H 115 H 105 H Calcium 05/10/24 05/10/24 07:24 07:46 WBC 2.66 L RBC 3.97 L Hgb 10.3 L Hct 32.6 L MCV 82.1 MCH 25.9 MCHC 31.6 L RDW Std Deviation 48.0 H RDW Coeff of Tommy 15.9 H Plt Count 144 MPV 10.4 Sodium 136 Potassium 3.3 L Chloride 100 Carbon Dioxide 28 Anion Gap 8 BUN 17 Creatinine 0.90 Est Cr Clr Drug Dosing 66.5 Est GFR ( Amer) 76.1 Est GFR (Non-Af Amer) 65.7 BUN/Creatinine Ratio 18.9 Glucose 187 H POC Glucose 103 H Calcium 8.3 L PG Care Time/CCT Total # of Minutes Spent Total Time Spent with Patient: Total time spent is greater than 50% in coordination of care (as documented) at patient's floor/unit and/or counseling patient: Coding Level of Care Code 75508 SUB INP/OBS CARE 3/50MIN Diagnoses History of kidney transplant Z94.0 Pneumonia J18.9 Atrial fibrillation I48.91
[2024-05-10] MEDS: CALCIUM CARBONATE 500 MG CHEWABLE TAB PO SCH (08:59)
--- NOTE | 2024-05-10 11:55 | Discharge Summary ---
Date of Service May 10, 2024 Admission HPI Per Admitting Provider Erin Sanchez is a 68 year old female with a renal transplant who presents to the ER with a cough and shortness of breath. She reports the her cough started first in January and she was diagnosed with a sinus infection and improved on cephalexin but never fully resolved. She thinks she has seasonal allergies with ongoing post nasal drip around this time of year but the ongoing cough is unusual for her. Unsure how much more short of breath she is than usual but possible more fatigued over the last week. No chest pain, nausea, vomiting, abdominal pain, fever, chills, change in urine. Main reason for coming in today is she noticed small amounts of blood in her cough. She takes Eliquis for history of blood clots and permanent atrial fibrillation. Principal Diagnosis Metapneumovirus pneumonia Discharge Exam The patient is awake, alert and oriented 3, well developed and well nourished, normocephalic and atraumatic, lying in bed and in no acute distress. HEENT--PERRL, EOMI, mucous membranes and oropharynx mildly dry Neck--supple. No JVD. No bruits. Thyroid normal, trachea midline, no adenopathy. Heart--normal S1 and S2. No murmurs, rubs or gallops. Lungs--clear bilaterally, no respiratory distress, no accessory muscle use. Abdomen--normal bowel sounds and soft. Extremities--no cyanosis or clubbing. No edema. Dermatologic--normal skin turgor, normal color, no abnormal lymph nodes, no rash. Neurologic--cranial nerves II through XII grossly intact. Rheumatologic--normal range of motion. Psychiatric--normal affect. Discharge Data Allergies Allergy/AdvReac Type Severity Reaction Status Date / Time erythromycin base AdvReac Severe "would Verified 05/08/24 16:30 interact overtime with my transplant meds" Consultations 05/08/24 16:48 ED Decision to Admit Stat 05/09/24 06:35 Consult Nephrology Routine Hospital Course (1) Community acquired pneumonia: Admitted to the hospital on account of worsening cough for the past several days BioFire positive for human metapneumovirus Some infiltrates on chest x-ray Blood cultures pending, negative for now Continue empiric ceftriaxone and doxycycline in case there is a superimposed bacterial infection. Upon reexamination today, patient feels clinically better. Wants to be discharged, Will discharge (2) Hypoxia: Resolved Saturating well on room air. (3) Post-nasal drip: Flonase BID PRN Suspected reason with allergies for her more chronic cough Can trial albuterol PRN Dextromethorphan PRN (4) Type 2 diabetes mellitus: Hemoglobin A1C 6.0 in December, repeat with AM labs Reduce basal insulin to 10 units due to likely reduced cabrohydrates with hospital food Novolog: --Goal BSG Range: Low 110 mg/dL, High 140 mg/dL --Correction Factor: 45 mg/dL/unit --Carbohydrate ratio = 15 g/unit --BSGs ACHS if eating, q6h if npo (5) Permanent atrial fibrillation: Anticoagulation with Eliquis Rate controlled without medications (6) Cardiomyopathy: Continue home Bumex 2 mg daily Monitor input and output, daily weight (7) History of kidney transplant: Tacrolimus and mycophenolate levels with AM labs, continue these Renal function stable Appreciate nephrology (8) Atrial fibrillation: Plan VTE Prophylaxis - Eliquis Diet - T2DM Disposition - Discharge home Total Time Total Time Spent Total Time Spent (In Minutes): 35 Discharge Plan Discharge Items Patient Disposition: Home - Self-Care Reason For Visit: COMMUNITY ACQUIRED PNEUMONIA, HYPOXIA Discharge Diagnosis: Human metapneumovirus pneumonia Activity: Resume your previous activity Non-emergency contact: Primary Care Provider Call non-emergency contact if: you have any medication questions Follow-up/Referrals: Marcus Jaramillo MD [Primary Care Provider] - 05/18/24 1:45 pm Diet: Regular Addtl Attending Provider Instructions: Please make appointment to follow-up with her regular PCP Pending Studies at Discharge: No Stand-Alone Forms: [employer], Smoking Cessation Medications and DC Order Prescriptions: Continued (DME) pen needle, diabetic [BD Ultra-Fine [place] Pen Needle] 32 gauge x 5/32" needle See Rx Instructions .ROUTE .MEDSUPPLY Qty: 100 3RF Rx Instructions: use once daily with Lantus metformin 500 mg tablet 1,000 mg PO BID Qty: 360 3RF Eliquis 5 mg tablet 5 mg PO BID Qty: 180 3RF Rx Instructions: Please do not fill until patient calls in to request atorvastatin 20 mg tablet 20 mg PO QPM Qty: 90 1RF Rx Instructions: Take 1 tablet by mouth every evening bumetanide 2 mg tablet 2 mg PO QAM Qty: 90 1RF Rx Instructions: Take 1 tablet by mouth every day semaglutide 0.25 mg or 0.5 mg (2 mg/3 mL) pen injector 0.5 mg subcut Q7D 90 Days Qty: 9 3RF Rx Instructions: FRIDAY calcium carbonate 200 mg calcium (500 mg) tablet,chewable 400 mg PO BID cinnamon bark 500 mg capsule 500 mg PO BID cranberry 400 mg capsule 400 mg PO BID magnesium oxide 400 mg (241.3 mg magnesium) tablet 400 mg PO BID Qty: 120 multivitamin [Daily Multi-Vitamin] tablet 1 tab PO QAM tacrolimus 1 mg capsule,extended release 24hr 2 mg PO QAM (DME) lancets [ReliOn Thin Lancets] 26 gauge misc See Dose Instructions .ROUTE .MEDSUPPLY Qty: 100 Rx Instructions: As directed biotin 1,000 mcg tablet,chewable 1,000 mcg PO QPM PRN (Reason: Unknown) (DME) diabetic shoes See Rx Instructions .Route .MEDSUPPLY Qty: 1 0RF Rx Instructions: As directed (DME) OneTouch Ultra Test Strip See Rx Instructions .Route Qty: 100 3RF Rx Instructions: test blood sugar once daily mycophenolate mofetil 250 mg capsule 750 mg PO BID PreserVision AREDS 2,148 mcg-113 mg-45 mg-17.4mg tablet 1 tab PO BID Rx Instructions: administer with AM and PM meals insulin glargine [Lantus Solostar U-100 Insulin] 100 unit/mL (3 mL) insulin pen 20 unit SQ QPM potassium citrate 99 mg capsule 198 mg PO BID duloxetine [Cymbalta] 20 mg capsule,delayed release(DR/EC) 20 mg PO HS pregabalin [Lyrica] 50 mg capsule 50 mg PO UD Rx Instructions: Take 50mg tab in Am and 100mg in PM; Discharge Orders: Discharge Order (Routine); Ordered 05/10/24 Ordered By: Vandana Norris/Other Patient Handouts: Chest and Lung Problems, Preventing Pneumonia, ED Pneumonia (Adult) Admission Data Admit Date/Time: 05/08/24 16:58 Attending Provider: Vandana Garcia Admit Provider: Saji Sandoval Primary Care Provider: Marcus Jaramillo Other Providers: Saji Sandoval; Jak Meza Other Interventions: Discharge Summary Assessment (RN) Last Done: 05/10/24 11:52 Coding Level of Care Code 40492 INP/OBS DISCH >30 MIN Diagnoses Community acquired pneumonia J18.9 Hypoxia R09.02 Post-nasal drip R09.82 Type 2 diabetes mellitus E11.9 Permanent atrial fibrillation I48.2 Dilated cardiomyopathy I42.0 Cardiomyopathy type: dilated History of kidney transplant Z94.0 Atrial fibrillation I48.91 Time Spent (min) 35
--- NOTE | 2024-05-10 12:26 | Electrocardiogram Report ---
Test Reason : Blood Pressure : / mmHG Vent. Rate : 049 BPM Atrial Rate : 000 BPM P-R Int : 000 ms QRS Dur : 142 ms QT Int : 508 ms P-R-T Axes : 000 -58 046 degrees QTc Int : 458 ms Atrial fibrillation with slow ventricular response Right bundle branch block Left anterior fascicular block Bifascicular block Septal infarct (cited on or before 15-MAR-2024) Abnormal ECG When compared with ECG of 15-MAR-2024 11:29, (unconfirmed) Questionable change in initial forces of Anteroseptal leads Confirmed by Washington Calle ([id number]) on 05/10/2024 12:26:06 PM Referred By: REFERRED SELF Confirmed By:Washington Calle
== END 2024-05-10 12:22 | disposition home or self-care (01) | DRG 194 ==
LOC: ED 13:46 → SUATTDRO 16:58 → 3E 16:58